=== PATIENT | male | born 1955 | race Caucasian/White ===

== ENCOUNTER 2022-07-03 06:26 | Day surgery (SDC) | payer BC ==
[2022-07-03] MEDS ORDERED: Lactated Ringers 1,000 ML IV ONE (06:36)
[2022-07-03] MEDS ORDERED: Lactated Ringers 1,000 ML IV SCH (07:00)
[2022-07-03] MEDS ORDERED: Xylocaine-Mpf 2% 5 Ml Vial ONE ×2 (08:02)
[2022-07-03] MEDS ORDERED: ROBINUL ONE (08:02)
[2022-07-03] MEDS ORDERED: DIPRIVAN 200 MG/20 ML IV ONE ×2 (08:02→08:16)
[2022-07-03 09:25] VITALS: BP 132/76; PULSE 58; O2SAT 97
--- NOTE | 2022-07-03 12:19 | OP ---
SURGERY DATE: 07/03/2022 SURGERY TIME: 0800 PREOPERATIVE DIAGNOSIS: 1. SCREENING COLONOSCOPY. POSTOPERATIVE DIAGNOSIS: 1. NORMAL COLON. PROCEDURE: 1. Colonoscopy. SURGEON: Dr. Trung Rm. ANESTHESIA: MAC by Rocky Lizarraga CRNA. SPECIMENS: None. ESTIMATED BLOOD LOSS: None. DESCRIPTION OF PROCEDURE: After informed written consent was obtained, the patient was taken to the endoscopy suite. He was placed in the left lateral decubitus position and anesthesia was titrated to the desired level of consciousness. Digital rectal exam showed normal sphincter tone and no internal lesions. The scope was inserted in the rectum and sequentially the entire colonic mucosa was traversed. The level of the cecum was reached and verified with direct visualization of the ileocecal valve. Upon withdrawal, careful mucosal inspection revealed no gross abnormalities. Prior to withdrawal, retroflexion was performed. Showed no internal lesions. The scope was removed and the patient was transferred to the recovery room in good condition.
== END 2022-07-03 09:28 | disposition home or self-care (01) ==
LOC: SDC 06:26
PROVIDERS: ATTEND Family Medicine
DX: Z12.11 Encounter for screening for malignant neoplasm of colon (principal); I10 Essential (primary) hypertension; Z79.899 Other long term (current) drug therapy
CPT/HCPCS: J2704

== ENCOUNTER 2025-08-28 06:21 | Day surgery (SDC) | payer MEDICARE, OTHER ==
[2025-08-28] MEDS ORDERED: CEFAZOLIN SODIUM ONE (06:38)
[2025-08-28] MEDS: TYLENOL EXTRA STRENGTH 500 MG PO ONE (06:47)
[2025-08-28] MEDS: Lactated Ringers 1,000 ML IV SCH (06:47)
[2025-08-28] MEDS: celeBREX 100 MG PO ONE (06:48)
[2025-08-28] MEDS: NEURONTIN PO ONE (06:48)
[2025-08-28] MEDS ORDERED: PHENYLEPHRINE HCL ONE (07:02)
[2025-08-28] MEDS ORDERED: Xylocaine-Mpf 2% 5 Ml Vial ONE (07:53)
[2025-08-28] MEDS ORDERED: propofoL IV ONE (07:53)
[2025-08-28] MEDS ORDERED: Zofran 4 MG/2 ML VIAL ONE (08:02)
[2025-08-28] MEDS ORDERED: SUBLIMAZE 100 MCG/2 ML ONE (08:03)
[2025-08-28] MEDS ORDERED: Ephedrine Sulfate 50 MG/ML ONE (08:24)
[2025-08-28] MEDS ORDERED: Marcaine Mpf 0.5% Vial 30 Ml ONE (08:36)
[2025-08-28 09:39] VITALS: RESP 16
[2025-08-28 09:48] VITALS: BP 134/78; PULSE 64; TEMP 97.6; O2SAT 96
--- NOTE | 2025-08-29 10:57 | OP ---
SURGERY DATE/TIME: 08/28/2025 [id number] PREOPERATIVE DIAGNOSES: Torn right medial meniscus, chondromalacia of patella. POSTOPERATIVE DIAGNOSES: Torn right medial meniscus, chondromalacia of patella, chondromalacia medial femoral condyle. PROCEDURE: Arthroscopy of the right knee with partial medial meniscectomy, chondroplasty of patella and medial femoral condyle. SURGEON: Jaime Brian II, DO. ANESTHESIA: General. DESCRIPTION OF PROCEDURE AND FINDINGS: The patient was identified, and informed consent was obtained. The patient was taken to the operative suite and placed in the supine position on the operating table where the general anesthetic was administered. Once an appropriate level of anesthesia had been obtained, a tourniquet was placed high on the right thigh. The right lower extremity was then placed in the knee ortiz and prepped and draped in the usual sterile fashion. A standard time-out was taken. Following this, the leg was exsanguinated, and the tourniquet elevated to 350 mmHg. A standard superomedial portal was created with an 11 blade. Trocar and cannula were placed in the joint. The joint was distended with the arthroscopic pump. An inferolateral portal was also created with an 11 blade, and the arthroscope was then placed in through the cannula. An 18-gauge spinal needle identified the level for the inferomedial portal, which was also created with an 11 blade. The knee was then inspected in a systematic fashion beginning in the suprapatellar pouch where there were no loose bodies or synovial hypertrophy. The undersurface of the patella had some grade 2 chondromalacia in the deepest portion of the patella and this was shaved and chondroplasty performed with the motorized shaver. The patient also had an area on the far medial edge of the medial facet of the patella and a chondroplasty was also performed with the shaver. The patella was noted to seat nicely in the femoral groove at about 30 degrees of flexion. Gutters were inspected and no loose bodies or synovial hypertrophy. Scope was placed in the medial compartment where a complex tear of the posterior horns of the medial meniscus was encountered and resected with the handheld biting instruments and shaved to a smooth transition with the shaver. Patient had an area of chondromalacia where he had been walking on the joint meniscus and this area of chondromalacia was treated with the shaver with limited chondroplasty. Intercondylar notch region was inspected and the anterior cruciate ligament was noted to be intact without evidence of attenuation or tears. Scope was placed into the lateral compartment where the lateral meniscus was probed throughout its entirety and noted to be intact without evidence of attenuation or tears. The lateral femoral condyle and tibial plateau were also noted to be intact with no degenerative changes noted. At this point, the knee was reinspected and copiously irrigated. No further pathology was identified. The instrumentation was removed, and the portal sites were closed with interrupted 4-0 nylon suture. The knee was infiltrated with 30 mL of 0.25% Marcaine with epinephrine. Adaptics, 4 x 4s, and a standard postop arthroscopy dressing applied. The patient was transferred to the cart and taken to the recovery room in satisfactory condition, having tolerated the procedure well.
== END 2025-08-28 10:00 | disposition home or self-care (01) ==
LOC: SDC 06:21
PROVIDERS: ATTEND Orthopaedic Surgery
DX: S83.231A Complex tear of medial meniscus, current injury, right knee, initial encounter (principal); M22.41 Chondromalacia patellae, right knee

== ENCOUNTER 2025-10-10 09:37 | Inpatient (IN) | payer MEDICARE, OTHER ==
[2025-10-10] MEDS ORDERED: Lactated Ringers 1,000 ML IV ONE (10:01)
[2025-10-10] MEDS: Lactated Ringers 1,000 ML IV SCH (10:07)
[2025-10-10 10:32] LABS: Hematocrit 47.5 % (40.1-51.0); Hemoglobin 15.7 g/dL (13.7-17.5); Mean Corpuscular Hemoglobin 30.1 pg (25.7-32.2); Mean Corpuscular Hgb Concent. 33.1 g/dL (32.3-36.5); Platelet Count 238 x10^3/uL (163-337); Red Blood Count 5.22 x10^6/uL (4.63-6.08); White Blood Count 7.3 x10^3/uL (4.23-9.07)
[2025-10-10] MEDS ORDERED: CEFAZOLIN SODIUM ONE (10:40)
[2025-10-10 11:41] LABS: Calcium 9.7 mg/dL (8.4-10.2); Carbon Dioxide 24.0 mmol/L (22-30); Creatinine 1 0.87 mg/dL (0.66-1.25); EST GLOMERULAR FILTRATION RATE 94.0 ML/MIN; Glucose 103.0 mg/dL (74-106); Potassium 4.2 mmol/L (3.5-5.1); SGOT/AST 30.0 U/L (17-59); SGPT/ALT 23.0 U/L (0-50); Total Protein 7.9 g/dL (6.3-8.2)
[2025-10-10] MEDS ORDERED: Versed 2 MG/2 ML Injection ONE (14:07)
[2025-10-10] MEDS ORDERED: Xylocaine-Mpf 2% 5 Ml Vial ONE (14:07)
[2025-10-10] MEDS ORDERED: SUBLIMAZE 100 MCG/2 ML ONE (14:07)
[2025-10-10] MEDS ORDERED: ROCURONIUM BROMIDE IV ONE (14:07)
[2025-10-10] MEDS ORDERED: Zofran 4 MG/2 ML VIAL ONE (14:07)
[2025-10-10] MEDS ORDERED: DEXMEDETOMIDINE 80 MCG/20ML-NS IV ONE (14:07)
[2025-10-10] MEDS ORDERED: propofoL IV ONE (14:07)
[2025-10-10] MEDS ORDERED: EXPAREL 133 MG/10 ML VIAL IJ ONE (14:14)
[2025-10-10] MEDS ORDERED: Pre-Attached Lta Kit TP ONE (14:14)
[2025-10-10] MEDS ORDERED: Marcaine Mpf 0.5% Vial 30 Ml ONE (14:14)
[2025-10-10] MEDS ORDERED: KEFZOL 1 GM ONE (15:07)
[2025-10-10] MEDS ORDERED: Ephedrine Sulfate 50 MG/ML ONE (15:20)
[2025-10-10] MEDS ORDERED: BRIDION 200MG/2ML IV ONE (16:01)
--- NOTE | 2025-10-10 17:03 | XRAY ---
Indication: Left ankle ORIF, syndesmosis reduction, possible lateral ankle stabilization, and possible deltoid ligament repair. Intraoperative fluoroscopy provided for 2 minute 24 seconds. 18 digital spot images submitted for interpretation ultimately demonstrates lateral fixation plate/transverse screws fixating lateral malleolus fracture in good apposition/alignment. Distal tibia/fibula also demonstrates transverse tunnel radiolucency with medial orthopedic button. Correlate with intraoperative findings/report.
--- NOTE | 2025-10-10 19:31 | PCM.HP ---
History of Present Illness - Chief Complaint Chief Complaint: POST OP ORIF Date: 10/10/25 History of Present Illness: is a 70 year old male PMHX of HTN, and DDD. Pt was admitted per request of podiatry post op Left ankle fracture and repair today. He is wanting placement to rehab at [place] if possible. He is scheduled to have a surgery with Dr. Lindo a neurosurgeon from [place] on the for spinal stenosis. He has chronic back pain with chronic weakness of Right lower extremity from a bone spur in the lumbar region. He is hoping the surgery will help with his right leg weakness. He reports this is what caused his fall. He now has BLLE weakness with the Left ankle fracture and concerned about ADL's at home. Pt denies any further concerns at this time. - Review of Systems Constitutional: Weakness (Chronic weakness of RLE), No Fever, No Chills Eyes: No Symptoms Ears, Nose, & Throat: No Symptoms Respiratory: No Cough, No Short Of Breath Cardiac: No Chest Pain, No Edema, No Syncope Abdominal/Gastrointestinal: No Abdominal Pain, No Nausea, No Vomiting, No Diarrhea Genitourinary Symptoms: No Dysuria Musculoskeletal: Injury (Left ankle- post op surgery), No Back Pain, No Neck Pain Skin: No Rash Neurological: No Dizziness, No Focal Weakness, No Sensory Changes Psychological: No Symptoms Endocrine: No Symptoms Hematologic/Lymphatic: No Symptoms Immunological/Allergic: No Symptoms Medications & Allergies Home Medications: Home Medication List Losartan Potassium 50 mg PO DAILY 07/03/22 [History Confirmed 10/10/25] Sildenafil Citrate 1 tab PO DAILY 08/22/25 [History Confirmed 10/10/25] Ascorbic Acid/Ascorbate Sodium [Vitamin C 500 mg Tablet Chew] 500 mg PO DAILY 10/10/25 [History Confirmed 10/10/25] Gabapentin [Neurontin ] 300 mg PO BID 10/10/25 [History Confirmed 10/10/25] Allergies/Adverse Reactions: Allergies Allergy/AdvReac Type Severity Reaction Status Date / Time No Known Drug Allergies Allergy Verified 10/09/25 16:39 - Past Medical History Past Medical History: Yes Neurological History: No Pertinent History ENT History: Cataracts Cardiac History: Hypertension Respiratory History: No Pertinent History Endocrine Medical History: No Pertinent History Musculoskelatal History: Degenerative Disk Disease, Fractures GI Medical History: No Pertinent History History: No Pertinent History Pyscho-Social History: No Pertinent History Male Reproductive Disorders: No Pertinent History Comment: hearing loss. left lower leg/ankle fracture - Past Surgical History Past Surgical History: Yes Neuro Surgical History: No Pertinent History Cardiac History: No Pertinent History Respiratory Surgery: No Pertinent History GI Surgical History: No Pertinent History Genitourinary Surgical Hx: No Pertinent History Musculskeletal Surgical Hx: Orthopedic Surgery Male Surgical History: Vasectomy Other Surgical History: DISK REPLACEMENT - Social History Smoking Status: Never smoker Exposure to second hand smoke: No Alcohol: None Drug Use: none - Social Determinants of Health Will the patient participate in the screening: Declined to provide - Physical Exam Vital Signs: Vital Signs - 24 hr Temp Pulse Resp BP Pulse Ox 10/10/25 18:27 63 18 128/64 95 10/10/25 17:55 97 F 68 18 132/70 92 L 10/10/25 17:40 64 18 128/64 93 L 10/10/25 17:25 97.6 F 63 18 128/70 92 L 10/10/25 10:34 98 F 75 16 145/70 97 10/10/25 10:16 98 F 75 16 145/70 97 General Appearance: no apparent distress, alert Neurologic Exam: alert, oriented x 3, cooperative, normal mood/affect, nml cerebellar function, nml station & gait, sensation nml, motor weakness (BLLE), No motor deficits Eye Exam: PERRL/EOMI, eyes nml inspection Ears, Nose, Throat Exam: normal ENT inspection, TMs normal, pharynx normal, mois t mucous membranes Neck Exam: normal inspection, non-tender, supple, full range of motion Respiratory Exam: normal breath sounds, lungs clear, No respiratory distress Cardiovascular Exam: regular rate/rhythm, normal heart sounds, normal peripheral pulses Gastrointestinal/Abdomen Exam: soft, normal bowel sounds, No tenderness, No mass Back Exam: normal inspection, normal range of motion, No CVA tenderness, No vertebral tenderness Extremity Exam: normal inspection, normal range of motion, pelvis stable, limited range of motion (LLE post op surgery) Skin Exam: normal color, warm, dry, No rash Lymphatic Exam: No adenopathy Results - Labs Lab/Micro Results: Lab Results-Last 24 Hours 10/10/25 10/10/25 Range/Units 10:20 10:20 WBC 7.3 (4.23-9.07) x10^3/uL RBC 5.22 (4.63-6.08) x10^6/uL Hgb 15.7 (13.7-17.5) g/dL Hct 47.5 (40.1-51.0) % MCV 91.0 (79.0-92.2) fL MCH 30.1 (25.7-32.2) pg MCHC 33.1 (32.3-36.5) g/dL RDW 12.3 (11.6-14.4) % Plt Count 238 (163-337) x10^3/uL MPV 9.9 (9.4-12.4) fL Sodium 137 (135-145) mmol/L Potassium 4.2 (3.5-5.1) mmol/L Chloride 102 (98-107) mmol/L Carbon Dioxide 24 (22-30) mmol/L Anion Gap 14.4 (5-15) MEQ/L BUN 14 (9-20) mg/dL Creatinine 0.87 (0.66-1.25) mg/dL Estimated GFR 94.0 ML/MIN Glucose 103 (74-106) mg/dL Calcium 9.7 (8.4-10.2) mg/dL Total Bilirubin 1.20 (0.2-1.3) mg/dL AST 30 (17-59) U/L ALT 23 (0-50) U/L Alkaline Phosphatase 132 H (38-126) U/L Serum Total Protein 7.9 (6.3-8.2) g/dL Albumin 4.7 (3.5-5.0) g/dL - Radiology Impressions Radiology Exams & Impressions: Radiology Procedures Category Date Time Status ANKLE (3 VIEWS) Routine Exams 10/10/25 07:24 Completed FLUOROSCOPY UP TO 1 HR Routine Exams 10/10/25 07:24 Taken Assessment/Plan (1) Fracture of distal end of fibula Current Visit: No Status: Acute Assessment & Plan: - POD #1 repair by podiatry - Right ankle XR: - Intraoperative fluoroscopy provided for 2 minute 24 seconds. 18 digital spot images submitted for interpretation ultimately demonstrates lateral fixation plate/transverse screws fixating lateral malleolus fracture in good apposition/alignment. Distal tibia/fibula also demonstrates transverse tunnel radiolucency with medial orthopedic button. Correlate with intraoperative findings/report. - Podiatry following - Narcotic pain control - Tylenol for pain PRN - RICE techniques - CBC, CMP reviewed - IVF stopped - Cefazolin gave in OR - Narcan PRN resp depression - Non- weight bearing right ankle Code(s): S82.839A - OTH FRACTURE OF UPPER AND LOWER END OF UNSP FIBULA, INIT (2) Fall Current Visit: No Status: Acute Assessment & Plan: - See plan above - CBC, CMP reviewed - From Chronic RLE weakness - PT/OT eval with rehab placement Code(s): W19.XXXA - UNSPECIFIED FALL, INITIAL ENCOUNTER (3) Chronic back pain Current Visit: Yes Status: Acute Assessment & Plan: - Continue gabapentin - HX spinal stenosis - Has upcoming surgery with Dr. Lindo- Neurosurgery on October 18 - Would like to go to [place] for rehab post op as his neurosurgeon has privileges there. Code(s): M54.9 - DORSALGIA, UNSPECIFIED; G89.29 - OTHER CHRONIC PAIN (4) Right leg weakness Current Visit: Yes Status: Acute Assessment & Plan: - Chronic - See Chronic pain pain plan above Code(s): R29.898 - OTH SYMPTOMS AND SIGNS INVOLVING THE MUSCULOSKELETAL SYSTEM (5) HTN (hypertension) Current Visit: Yes Status: Chronic Assessment & Plan: - BP stable - Continue home BP med Code(s): I10 - ESSENTIAL (PRIMARY) HYPERTENSION (6) Obesity (BMI 30.0-34.9) Current Visit: Yes Status: Chronic Assessment & Plan: - Advised diet and exercise control Plan of care time > 50 minutes Code(s): E66.811 - OBESITY, CLASS 1 Telemedicine Encounter - Telemedicine Encounter Telemedicine Encounter: "The entirety of this encounter was performed via Telemedicine" This visit was performed using real-time audio and video connection between my location and thepatients locationwith the assistance of a surrogateat the patients location. Written or verbal consent was obtained from the patient/guardian to perform this visit [email or web address] + Sailtelemedicine technology. Any patient questions regarding the telemedicine interaction were answered.
[2025-10-10] MEDS ORDERED: Narcan 0.4 MG/ML IV PRN (19:39)
[2025-10-10] MEDS ORDERED: Zofran 4 MG/2 ML VIAL IV PRN (19:46)
[2025-10-10] MEDS: NEURONTIN PO SCH (22:04)
[2025-10-10] MEDS: NEURONTIN PO ONE (22:04)
[2025-10-11] MEDS: TYLENOL 325 MG PO PRN (04:30)
[2025-10-11 05:51] LABS: Hematocrit 42.6 % (40.1-51.0); Hemoglobin 13.7 g/dL (13.7-17.5); Mean Corpuscular Hemoglobin 29.4 pg (25.7-32.2); Mean Corpuscular Hgb Concent. 32.2 g/dL (32.3-36.5); Platelet Count 243 x10^3/uL (163-337); Red Blood Count 4.66 x10^6/uL (4.63-6.08); White Blood Count 13.1 x10^3/uL (4.23-9.07)
[2025-10-11 06:34] LABS: Calcium 9.2 mg/dL (8.4-10.2); Carbon Dioxide 24.0 mmol/L (22-30); Creatinine 1 0.81 mg/dL (0.66-1.25); EST GLOMERULAR FILTRATION RATE 96.0 ML/MIN; Glucose 128.0 mg/dL (74-106); Potassium 4.1 mmol/L (3.5-5.1); SGOT/AST 25.0 U/L (17-59); SGPT/ALT 21.0 U/L (0-50); Total Protein 7.0 g/dL (6.3-8.2)
[2025-10-11] MEDS ORDERED: MEDICATION INTERVENTION MC SCH (07:30)
[2025-10-11] MEDS: Vitamin C 500 MG PO SCH (09:53)
[2025-10-11] MEDS: Ecotrin 325 MG PO SCH (09:53)
[2025-10-11] MEDS: Cozaar 50 MG PO SCH (09:53)
[2025-10-11] MEDS ORDERED: SILDENAFIL CITRATE 100 MG PO SCH (10:00)
[2025-10-11] MEDS: NORCO 7.5/325 MG TAB PO PRN (10:17)
--- NOTE | 2025-10-11 12:33 | XRAY ---
2 minutes and 24 seconds of fluoroscopy was used in surgery for a left ankle ORIF, syndesmosis reduction, possible lateral ankle stabilization, and possible deltoid ligament repair.
--- NOTE | 2025-10-11 13:22 | PCM.NOTE ---
Date and Time: 10/11/25 1313 Subjective Assessment: 10/10/25 is a 70 year old male PMHX of HTN, and DDD. Pt was admitted per request of podiatry post op Left ankle fracture and repair today. He is wanting placement to rehab at [place] if possible. He is scheduled to have a surgery with Dr. Lindo a neurosurgeon from [place] on the for spinal stenosis. He has chronic back pain with chronic weakness of Right lower extremity from a bone spur in the lumbar region. He is hoping the surgery will help with his right leg weakness. He reports this is what caused his fall. He now has BLLE weakness with the Left ankle fracture and concerned about ADL's at home. Pt denies any further concerns at this time. 10/11/25 Pt resting in bed. He did not do well with PT/OT today per verbal report. Pt awaiting placement to rehab if accepted. CM working on placement. WBC 13.1. He post op day #2 from surgery with podiatry. Awaiting podiatry note and recs. Pain well controlled at this time. Pt denies any further concerns. * Started Levaquin 500mg daily per Dr. Morel- podiatry. - Review of Systems Constitutional: Weakness, No Fever, No Chills Eyes: No Symptoms Ears, Nose, & Throat: No Symptoms Respiratory: No Cough, No Short Of Breath Cardiac: No Chest Pain, No Edema, No Syncope Abdominal/Gastrointestinal: No Abdominal Pain, No Nausea, No Vomiting, No Diarrhea Genitourinary Symptoms: No Dysuria Musculoskeletal: Injury (LLE wrapped), No Back Pain, No Neck Pain Skin: No Rash Neurological: No Dizziness, No Focal Weakness, No Sensory Changes Psychological: No Symptoms Endocrine: No Symptoms Hematologic/Lymphatic: No Symptoms Immunological/Allergic: No Symptoms Objective Exam General Appearance: no apparent distress, alert, obese Neurologic Exam: alert, oriented x 3, cooperative, normal mood/affect, nml cerebellar function, sensation nml, motor weakness, No motor deficits Skin Exam: normal color, warm, dry Wound Assessment: Skin/Wound Assessment Wound/Incision Assessment Start: 10/11/25 04:10 Text: Status: Active Freq: Q4H Protocol: Document 10/11/25 12:00 AR (Rec: 10/11/25 12:47 AR [id number]) Wound/Incision Assessment Left ankle Wound Assessment Shift Assessment Wound Type Incision Wound Stage Non Pressure Wound Dressing Status Dry & Intact Drainage Amount None Drainage Odor None/Absent Comment Post-op dressing C/D/I Wound Photo Photo Taken No Eye Exam: PERRL, EOMI, eyes nml inspection Ears, Nose, Throat Exam: normal ENT inspection, pharynx normal, moist mucous membranes Neck Exam: normal inspection, non-tender, supple, full range of motion Respiratory Exam: normal breath sounds, lungs clear, No respiratory distress Cardiovascular Exam: regular rate/rhythm, normal heart sounds Gastrointestinal/Abdomen Exam: soft, No tenderness, No mass Extremity Exam: normal inspection, normal range of motion, limited range of motion (LLE- wrapped), other (Weakness of RLE) Back Exam: normal inspection, normal range of motion, No CVA tenderness, No vertebral tenderness Male Genitalia Exam: deferred Rectal Exam: deferred Objective Data Vital Signs: Vital Signs - 24 hr Temp Pulse Resp BP Pulse Ox 10/11/25 07:48 98.1 F 85 18 128/59 93 L 10/11/25 04:10 18 10/11/25 04:00 98.5 F 87 18 130/63 94 L 10/11/25 00:00 98.1 F 92 H 18 122/59 91 L 10/10/25 18:27 63 18 128/64 95 10/10/25 17:55 97 F 68 18 132/70 92 L 10/10/25 17:40 64 18 128/64 93 L 10/10/25 17:25 97.6 F 63 18 128/70 92 L Pain Assessment - Last Documented Pain Intensity [Left] 3 Pain Intensity 0 Pain Scale Used 0-10 Pain Scale Intake and Output: Intake & Output 10/09/25 10/10/25 10/11/25 10/12/25 11:59 11:59 11:59 11:59 Intake Total 240 Output Total 1700 Balance -1460 Weight 111.13 kg 115 kg Lab Results: Lab Results-Last 24 Hours 10/11/25 10/11/25 Range/Units 04:45 04:45 WBC 13.1 H (4.23-9.07) x10^3/uL RBC 4.66 (4.63-6.08) x10^6/uL Hgb 13.7 (13.7-17.5) g/dL Hct 42.6 (40.1-51.0) % MCV 91.4 (79.0-92.2) fL MCH 29.4 (25.7-32.2) pg MCHC 32.2 L (32.3-36.5) g/dL RDW 12.2 (11.6-14.4) % Plt Count 243 (163-337) x10^3/uL MPV 10.5 (9.4-12.4) fL Sodium 134 L (135-145) mmol/L Potassium 4.1 (3.5-5.1) mmol/L Chloride 101 (98-107) mmol/L Carbon Dioxide 24 (22-30) mmol/L Anion Gap 13.2 (5-15) MEQ/L BUN 12 (9-20) mg/dL Creatinine 0.81 (0.66-1.25) mg/dL Estimated GFR 96.0 ML/MIN Glucose 128 H (74-106) mg/dL Calcium 9.2 (8.4-10.2) mg/dL Total Bilirubin 0.90 (0.2-1.3) mg/dL AST 25 (17-59) U/L ALT 21 (0-50) U/L Alkaline Phosphatase 111 (38-126) U/L Serum Total Protein 7.0 (6.3-8.2) g/dL Albumin 4.2 (3.5-5.0) g/dL Radiology Exams: Radiology Procedures Category Date Time Status ANKLE (3 VIEWS) Routine Exams 10/10/25 07:24 Completed FLUOROSCOPY UP TO 1 HR Routine Exams 10/10/25 07:24 Completed Medications: Medications Generic Name Dose Route Start Last Admin Trade Name Freq PRN Reason Stop Dose Admin Acetaminophen 650 mg 10/10/25 19:40 10/11/25 04:30 Acetaminophen 325 Mg Tablet PO 11/09/25 19:39 650 mg Q6H PRN PRN Administration PAIN AND/OR FEVER Hydrocodone Bitart/Acetaminophen 1 tab 10/10/25 18:23 10/11/25 10:17 Hydrocodone /Apap 7.5/325 Mg 1 Each Tablet PO 10/15/25 18:22 1 tab Q6H PRN PRN Administration PAIN Ascorbic Acid 500 mg 10/11/25 10:00 10/11/25 09:58 Ascorbic Acid 500 Mg Tablet PO 11/10/25 09:59 Not Given DAILY MATTHEW Aspirin 325 mg 10/11/25 10:00 10/11/25 09:53 Aspirin 325 Mg Tablet.Ec PO 11/10/25 09:59 325 mg DAILY MATTHEW Administration Gabapentin 300 mg 10/10/25 22:00 10/11/25 09:53 Gabapentin 300 Mg Capsule PO 11/09/25 21:59 300 mg BID MATTHEW Administration Losartan Potassium 50 mg 10/11/25 10:00 10/11/25 09:53 Losartan Potassium 50 Mg Tablet PO 11/10/25 09:59 50 mg DAILY MATTHEW Administration Miscellaneous Information 1 each 10/11/25 07:30 Medication Intervention 1 Each Each 11/10/25 07:29 .RN TO CHECK MATTHEW Naloxone HCl 0.4 mg 10/10/25 19:39 Naloxone Hcl 0.4 Mg/Ml Ml IV 11/09/25 19:38 PRN PRN RESPIRATORY DEPRESSION Ondansetron HCl 4 mg 10/10/25 19:46 Ondansetron Hcl 4 Mg/2 Ml Vial IV 11/09/25 19:45 Q6H PRN PRN NAUSEA/VOMITING Discontinued Medications Generic Name Dose Route Start Last Admin Trade Name Freq PRN Reason Stop Dose Admin Bupivacaine HCl Confirm 10/10/25 14:14 Bupivacaine Hcl/Pf 150 Mg/30 Ml Vial Administered 10/10/25 14:15 Dose 150 mg .ROUTE .STK-MED ONE Bupivacaine Liposome Confirm 10/10/25 14:14 Bupivacaine Liposome/Pf 133 Mg/10 Ml Administered 10/10/25 14:15 Dose 266 mg IJ .STK-MED ONE Cefazolin Sodium Confirm 10/10/25 10:40 Cefazolin Sodium 2 Gm Vial Administered 10/10/25 10:41 Dose 2 gm .ROUTE .STK-MED ONE Cefazolin Sodium Confirm 10/10/25 15:07 Cefazolin Sodium 1 Gm Vial Administered 10/10/25 15:08 Dose 1 g .ROUTE .STK-MED ONE Dexamethasone Sodium Phosphate Confirm 10/10/25 14:07 Dexamethasone Sodium Phosphate 4 Mg/Ml Vial Administered 10/10/25 14:08 Dose 4 mg .ROUTE .STK-MED ONE Dexamethasone Sodium Phosphate Confirm 10/10/25 15:10 Dexamethasone Sodium Phosphate 4 Mg/Ml Vial Administered 10/10/25 15:11 Dose 4 mg .ROUTE .STK-MED ONE Dexmedetomidine/Sodium Chloride Confirm 10/10/25 14:07 Dexmedetomidine In 0.9 % Nacl 80 Mcg/20 Ml Vial Administered 10/10/25 14:08 Dose 80 mcg IV .STK-MED ONE Ephedrine Sulfate Confirm 10/10/25 15:20 Ephedrine Sulfate 50 Mg/Ml Administered 10/10/25 15:21 Dose 50 mg .ROUTE .STK-MED ONE Fentanyl Citrate Confirm 10/10/25 14:07 Fentanyl Citrate 100 Mcg/2 Ml* Vial Administered 10/10/25 14:08 Dose 100 mcg .ROUTE .STK-MED ONE Gabapentin 300 mg 10/10/25 22:00 10/10/25 22:04 Gabapentin 300 Mg Capsule PO 10/10/25 22:01 Not Given ONCE ONE Lactated Ringer's Confirm 10/10/25 10:01 Lactated Ringers Administered 10/10/25 10:02 Dose 1,000 mls @ ud IV .STK-MED ONE Cefazolin Sodium 2 gm/ Sodium 100 mls @ 200 mls/hr 10/10/25 10:05 10/10/25 10:42 Chloride IV 10/10/25 10:34 200 mls/hr ONCALLTOOR ONE Administration Lactated Ringer's 1,000 mls @ 50 mls/hr 10/10/25 10:30 10/10/25 10:07 Lactated Ringers IV 11/09/25 10:29 50 mls/hr .Q20H MATTHEW Administration Sodium Chloride Confirm 10/10/25 10:40 Sodium Chloride 0.9% Administered 10/10/25 10:41 Dose 100 mls @ ud .ROUTE .STK-MED ONE Lidocaine HCl Confirm 10/10/25 14:07 Lidocaine - Mpf 2% 5 Ml Vial Administered 10/10/25 14:08 Dose 5 ml .ROUTE .STK-MED ONE Lidocaine HCl Confirm 10/10/25 14:14 Lidocaine Hcl 4 Ml Solution (Lta Kit) Administered 10/10/25 14:15 Dose 4 ml TP .STK-MED ONE Midazolam HCl Confirm 10/10/25 14:07 Midazolam Hcl 2 Mg/2 Ml Vial Administered 10/10/25 14:08 Dose 2 mg .ROUTE .STK-MED ONE Ondansetron HCl Confirm 10/10/25 14:07 Ondansetron Hcl 4 Mg/2 Ml Vial Administered 10/10/25 14:08 Dose 4 mg .ROUTE .STK-MED ONE Propofol Confirm 10/10/25 14:07 Propofol 200 Mg/20 Ml Vial Administered 10/10/25 14:08 Dose 200 mg IV .STK-MED ONE Rocuronium [place] Confirm 10/10/25 14:07 Rocuronium [place] 50 Mg/5 Ml Vial Administered 10/10/25 14:08 Dose 50 mg IV .STK-MED ONE Sugammadex Sodium Confirm 10/10/25 16:01 Sugammadex Sodium 200 Mg/2 Ml Vial Administered 10/10/25 16:02 Dose 200 mg IV .STK-MED ONE Multi-Disciplinary Progress Notes: Multi-Disciplinary Progress Notes 10/11/25 12:53 Case Management Note by Nancy Arias DONE, NO LEVEL II REQUIRED-COPIES PLACED ON CHART FULL REFERRAL WITH [facility] FAXED TO [facility] Initialized on 10/11/25 12:53 - END OF NOTE Assessment/Plan (1) Fracture of distal end of fibula Current Visit: No Status: Acute Code(s): S82.839A - OTH FRACTURE OF UPPER AND LOWER END OF UNSP FIBULA, INIT (2) Fall Current Visit: No Status: Acute Code(s): W19.XXXA - UNSPECIFIED FALL, INITIAL ENCOUNTER (3) Chronic back pain Current Visit: Yes Status: Acute Code(s): M54.9 - DORSALGIA, UNSPECIFIED; G89.29 - OTHER CHRONIC PAIN (4) Right leg weakness Current Visit: Yes Status: Acute Code(s): R29.898 - OTH SYMPTOMS AND SIGNS INVOLVING THE MUSCULOSKELETAL SYSTEM (5) HTN (hypertension) Current Visit: Yes Status: Chronic Code(s): I10 - ESSENTIAL (PRIMARY) HYPERTENSION (6) Obesity (BMI 30.0-34.9) Current Visit: Yes Status: Chronic Assessment & Plan: (1) Fracture of distal end of fibula Current Visit: No Status: Acute Assessment & Plan: - POD #1 repair by podiatry - Right ankle XR: - Intraoperative fluoroscopy provided for 2 minute 24 seconds. 18 digital spot images submitted for interpretation ultimately demonstrates lateral fixation plate/transverse screws fixating lateral malleolus fracture in good apposition/alignment. Distal tibia/fibula also demonstrates transverse tunnel radiolucency with medial orthopedic button. Correlate with intraoperative findings/report. - Podiatry following - Narcotic pain control - Tylenol for pain PRN - RICE techniques - BIANKA, CMP reviewed - IVF stopped - Cefazolin gave in OR - Narcan PRN resp depression - Non- weight bearing right ankle 10/11 - Podiatry note pending - Start Levaquin 500mg PO daily per Dr. Morel - + Weakness of BLLE - Pt not not do well with PT/OT today per verbal reports - CM working on placement to rehab - BIANKA, CMP reviewed - WBC 13.1 Code(s): S82.839A - OTH FRACTURE OF UPPER AND LOWER END OF UNSP FIBULA, INIT (2) Fall Current Visit: No Status: Acute Assessment & Plan: - See plan above - BIANKA CMP reviewed - From Chronic RLE weakness - PT/OT eval with rehab placement Code(s): W19.XXXA - UNSPECIFIED FALL, INITIAL ENCOUNTER (3) Chronic back pain Current Visit: Yes Status: Acute Assessment & Plan: - Continue gabapentin - HX spinal stenosis - Has upcoming surgery with Dr. Lindo- Neurosurgery on October 18 - Would like to go to [place] for rehab post op as his neurosurgeon has privileges there. Code(s): M54.9 - DORSALGIA, UNSPECIFIED; G89.29 - OTHER CHRONIC PAIN (4) Right leg weakness Current Visit: Yes Status: Acute Assessment & Plan: - Chronic - See Chronic pain pain plan above Code(s): R29.898 - OTH SYMPTOMS AND SIGNS INVOLVING THE MUSCULOSKELETAL SYSTEM (5) HTN (hypertension) Current Visit: Yes Status: Chronic Assessment & Plan: - BP stable - Continue home BP med Code(s): I10 - ESSENTIAL (PRIMARY) HYPERTENSION (6) Obesity (BMI 30.0-34.9) Current Visit: Yes Status: Chronic Assessment & Plan: - Advised diet and exercise control VTE: Lovenox PPI: Protonix D/C plan: pending placement Plan of care time > 50 minutes Next of KIN: Code(s): E66.811 - OBESITY, CLASS 1 Code(s): E66.811 - OBESITY, CLASS 1
[2025-10-11] MEDS: Protonix 20MG Tablet PO SCH (15:42)
[2025-10-11] MEDS: Levofloxacin 500 MG Tablet PO SCH (15:42)
[2025-10-11] MEDS: ENOXAPARIN SODIUM SQ SCH (16:34)
[2025-10-12 05:40] LABS: Hematocrit 38.3 % (40.1-51.0); Hemoglobin 12.5 g/dL (13.7-17.5); Mean Corpuscular Hemoglobin 30.1 pg (25.7-32.2); Mean Corpuscular Hgb Concent. 32.6 g/dL (32.3-36.5); Platelet Count 203 x10^3/uL (163-337); Red Blood Count 4.15 x10^6/uL (4.63-6.08); White Blood Count 8.6 x10^3/uL (4.23-9.07)
[2025-10-12 05:55] LABS: Calcium 8.4 mg/dL (8.4-10.2); Carbon Dioxide 27.0 mmol/L (22-30); Creatinine 1 0.92 mg/dL (0.66-1.25); EST GLOMERULAR FILTRATION RATE 90.6 ML/MIN; Glucose 102.0 mg/dL (74-106); Potassium 4.0 mmol/L (3.5-5.1)
[2025-10-12] MEDS ORDERED: Protonix 20MG Tablet PO SCH (10:00)
--- NOTE | 2025-10-12 11:39 | PCM.CONS ---
Podiatry HPI - Consult Date of Consultation Date: 10/10/25 Reason for Consult: left ankle fracture. Spinal compression injury. inability to ambulate. Consulting Provider: PORSCHE KHALIL DPM - [facility] History of Present Illness: Mr. Jauregui is a 70-year-old male with a history of hypertension and degenerative disc disease. He was admitted following postoperative repair of a left ankle fracture earlier today. He is requesting rehabilitation placement, preferably at [facility], due to current mobility limitations. He is scheduled for spinal stenosis surgery with neurosurgeon Dr. Lindo in [place] on the . He reports chronic back pain and longstanding right lower extremity weakness from a lumbar bone spur, which he believes contributed to his fall. He is hopeful the upcoming surgery will improve his right leg strength. He currently has bilateral lower extremity weakness, further impacted by the new left ankle fracture, and expresses concern about his ability to safely manage activities of daily living at home. He denies any additional concerns at this time. Medications & Allergies Home Medications: Home Medication List Losartan Potassium 50 mg PO DAILY 07/03/22 [History Confirmed 10/10/25] Sildenafil Citrate 1 tab PO DAILY 08/22/25 [History Confirmed 10/10/25] Ascorbic Acid/Ascorbate Sodium [Vitamin C 500 mg Tablet Chew] 500 mg PO DAILY 10/10/25 [History Confirmed 10/10/25] Gabapentin [Neurontin ] 300 mg PO BID 10/10/25 [History Confirmed 10/10/25] Allergies/Adverse Reactions: Allergies Allergy/AdvReac Type Severity Reaction Status Date / Time No Known Drug Allergies Allergy Verified 10/09/25 16:39 - Past Medical History Past Medical History: Yes Neurological History: No Pertinent History ENT History: Cataracts Cardiac History: Hypertension Respiratory History: No Pertinent History Endocrine Medical History: No Pertinent History Musculoskelatal History: Degenerative Disk Disease, Fractures GI Medical History: No Pertinent History History: No Pertinent History Pyscho-Social History: No Pertinent History Male Reproductive Disorders: No Pertinent History Comment: hearing loss. left lower leg/ankle fracture - Past Surgical History Past Surgical History: Yes Neuro Surgical History: No Pertinent History Cardiac History: No Pertinent History Respiratory Surgery: No Pertinent History GI Surgical History: No Pertinent History Genitourinary Surgical Hx: No Pertinent History Musculskeletal Surgical Hx: Orthopedic Surgery Male Surgical History: Vasectomy Other Surgical History: DISK REPLACEMENT - Social History Smoking Status: Never smoker Exposure to second hand smoke: No Alcohol: None Drug Use: none - Social Determinants of Health Will the patient participate in the screening: Declined to provide Physical Exam - Narrative Narrative Physical Exam: Podiatry Physical Exam Results - Labs Lab/Micro Results: Lab Results-Last 24 Hours 10/12/25 10/12/25 Range/Units 05:03 05:03 WBC 8.6 (4.23-9.07) x10^3/uL RBC 4.15 L (4.63-6.08) x10^6/uL Hgb 12.5 L (13.7-17.5) g/dL Hct 38.3 L (40.1-51.0) % MCV 92.3 H (79.0-92.2) fL MCH 30.1 (25.7-32.2) pg MCHC 32.6 (32.3-36.5) g/dL RDW 12.8 (11.6-14.4) % Plt Count 203 (163-337) x10^3/uL MPV 10.5 (9.4-12.4) fL Sodium 134 L (135-145) mmol/L Potassium 4.0 (3.5-5.1) mmol/L Chloride 101 (98-107) mmol/L Carbon Dioxide 27 (22-30) mmol/L Anion Gap 10.3 (5-15) MEQ/L BUN 14 (9-20) mg/dL Creatinine 0.92 (0.66-1.25) mg/dL Estimated GFR 90.6 ML/MIN Glucose 102 (74-106) mg/dL Calcium 8.4 (8.4-10.2) mg/dL Assessment/Plan (1) Chronic back pain Current Visit: Yes Status: Acute Code(s): M54.9 - DORSALGIA, UNSPECIFIED; G89.29 - OTHER CHRONIC PAIN (2) Right leg weakness Current Visit: Yes Status: Acute Code(s): R29.898 - OTH SYMPTOMS AND SIGNS INVOLVING THE MUSCULOSKELETAL SYSTEM (3) HTN (hypertension) Current Visit: Yes Status: Chronic Code(s): I10 - ESSENTIAL (PRIMARY) HYPERTENSION (4) Obesity (BMI 30.0-34.9) Current Visit: Yes Status: Chronic Code(s): E66.811 - OBESITY, CLASS 1 (5) Fall Current Visit: No Status: Acute Code(s): W19.XXXA - UNSPECIFIED FALL, INITIAL ENCOUNTER (6) Fracture of distal end of fibula Current Visit: No Status: Acute Assessment & Plan: s/p open reduction internal fixation of left ankle with syndesmosis reduction. Radiograph reviewed and discussed with patient Ok to d.c. to rehab when criteria are met and PT/OT assessment is completed. Non-weightbearing on the left operative ankle. Leave dressing clean, dry, and intact. Continue Levaquin as ordered in-house to complete the 10-day course. Continue ASA 325 as ordered. Pain meds: 7.5/325 mg Percocet. Follow up in 1 week. Code(s): S82.839A - OTH FRACTURE OF UPPER AND LOWER END OF UNSP FIBULA, INIT
[2025-10-12 12:32] LABS: Glucose, Urine Negative (Negative); Protein,Urine Dip Negative (Negative); WBC 0-2 /HPF (0-5)
--- NOTE | 2025-10-12 12:38 | PCM.NOTE ---
Date and Time: 10/12/25 1232 Subjective Assessment: 10/10/25 is a 70 year old male PMHX of HTN, and DDD. Pt was admitted per request of podiatry post op Left ankle fracture and repair today. He is wanting placement to rehab at [facility] if possible. He is scheduled to have a surgery with Dr. Lindo a neurosurgeon from [facility] on the for spinal stenosis. He has chronic back pain with chronic weakness of Right lower extremity from a bone spur in the lumbar region. He is hoping the surgery will help with his right leg weakness. He reports this is what caused his fall. He now has BLLE weakness with the Left ankle fracture and concerned about ADL's at home. Pt denies any further concerns at this time. 10/11/25 Pt resting in bed. He did not do well with PT/OT today per verbal report. Pt awaiting placement to rehab if accepted. CM working on placement. WBC 13.1. He post op day #2 from surgery with podiatry. Awaiting podiatry note and recs. Pain well controlled at this time. Pt denies any further concerns. * Started Levaquin 500mg daily per Dr. Morel- podiatry. 10/12/25 Patient is sitting up in bed. He states that his pain is well-controlled at this time. He is having urinary retention and a bladder scan was completed by nurse and verifies this with >700 ml seen. A an catheter was placed with a UA sample pending. Patient to DC to rehab tomorrow at 10 AM. Continue Levaquin for left ankle fracture postop surgery per podiatry. Awaiting podiatry note. Patient denies any further concerns at this time. - Review of Systems Constitutional: Weakness (BLLE), No Fever, No Chills Eyes: No Symptoms Ears, Nose, & Throat: No Symptoms Respiratory: No Cough, No Short Of Breath Cardiac: No Chest Pain, No Edema, No Syncope Abdominal/Gastrointestinal: No Abdominal Pain, No Nausea, No Vomiting, No Diarrhea Genitourinary Symptoms: Urinary Retention, No Dysuria Musculoskeletal: Injury (LLE wrapped), No Back Pain, No Neck Pain Skin: No Rash Neurological: No Dizziness, No Focal Weakness, No Sensory Changes Psychological: No Symptoms Endocrine: No Symptoms Hematologic/Lymphatic: No Symptoms Immunological/Allergic: No Symptoms Objective Exam General Appearance: no apparent distress, alert, obese Neurologic Exam: alert, oriented x 3, cooperative, normal mood/affect, nml cerebellar function, sensation nml, motor weakness, No motor deficits Skin Exam: normal color, warm, dry Wound Assessment: Skin/Wound Assessment Wound/Incision Assessment Start: 10/11/25 04:10 Text: Status: Active Freq: Q4H Protocol: Document 10/12/25 12:00 AR (Rec: 10/12/25 12:31 AR [id number]) Wound/Incision Assessment Left ankle Wound Assessment Shift Assessment Wound Type Incision Wound Stage Non Pressure Wound Dressing Status Dry & Intact Drainage Amount None Comment DRESSING CDI Wound Photo Photo Taken No Eye Exam: PERRL, EOMI, eyes nml inspection Ears, Nose, Throat Exam: normal ENT inspection, pharynx normal, moist mucous membranes Neck Exam: normal inspection, non-tender, supple, full range of motion Respiratory Exam: normal breath sounds, lungs clear, No respiratory distress Cardiovascular Exam: regular rate/rhythm, normal heart sounds Gastrointestinal/Abdomen Exam: soft, No tenderness, No mass Extremity Exam: normal inspection, normal range of motion, limited range of motion (LLE) Back Exam: normal inspection, normal range of motion, decreased range of motion (lumbar), No CVA tenderness, No vertebral tenderness Male Genitalia Exam: deferred Rectal Exam: deferred Objective Data Vital Signs: Vital Signs - 24 hr Temp Pulse Resp BP Pulse Ox 10/12/25 12:00 98.1 F 71 18 134/61 96 10/12/25 07:12 98.1 F 61 18 117/64 94 L 10/12/25 04:00 18 10/12/25 03:55 98 F 75 18 116/63 92 L 10/11/25 23:57 98.3 F 68 18 120/58 93 L 10/11/25 23:40 18 10/11/25 20:00 98.6 F 86 18 126/64 93 L 10/11/25 16:00 98.0 F 80 18 131/70 92 L Pain Assessment - Last Documented Pain Intensity [Left] 3 Pain Intensity 2 Pain Scale Used 0-10 Pain Scale Intake and Output: Intake & Output 10/10/25 10/11/25 10/12/25 10/13/25 11:59 11:59 11:59 11:59 Intake Total 240 120 Output Total 1705 369 496 Balance -1343 -902 -928 Weight 111.13 kg 115 kg Lab Results: Lab Results-Last 24 Hours 10/12/25 10/12/25 Range/Units 05:03 05:03 WBC 8.6 (4.23-9.07) x10^3/uL RBC 4.15 L (4.63-6.08) x10^6/uL Hgb 12.5 L (13.7-17.5) g/dL Hct 38.3 L (40.1-51.0) % MCV 92.3 H (79.0-92.2) fL MCH 30.1 (25.7-32.2) pg MCHC 32.6 (32.3-36.5) g/dL RDW 12.8 (11.6-14.4) % Plt Count 203 (163-337) x10^3/uL MPV 10.5 (9.4-12.4) fL Sodium 134 L (135-145) mmol/L Potassium 4.0 (3.5-5.1) mmol/L Chloride 101 (98-107) mmol/L Carbon Dioxide 27 (22-30) mmol/L Anion Gap 10.3 (5-15) MEQ/L BUN 14 (9-20) mg/dL Creatinine 0.92 (0.66-1.25) mg/dL Estimated GFR 90.6 ML/MIN Glucose 102 (74-106) mg/dL Calcium 8.4 (8.4-10.2) mg/dL Medications: Medications Generic Name Dose Route Start Last Admin Trade Name Jesus PRN Reason Stop Dose Admin Acetaminophen 650 mg 10/10/25 19:40 10/12/25 03:43 Acetaminophen 325 Mg Tablet PO 11/09/25 19:39 650 mg Q6H PRN PRN Administration PAIN AND/OR FEVER Hydrocodone Bitart/Acetaminophen 1 tab 10/10/25 18:23 10/12/25 05:23 Hydrocodone /Apap 7.5/325 Mg 1 Each Tablet PO 10/15/25 18:22 1 tab Q6H PRN PRN Administration PAIN Ascorbic Acid 500 mg 10/11/25 10:00 10/12/25 09:58 Ascorbic Acid 500 Mg Tablet PO 11/10/25 09:59 Not Given DAILY MATTHEW Aspirin 325 mg 12/03/25 10:00 10/12/25 09:58 Aspirin 325 Mg Tablet.Ec PO 11/10/25 09:59 Not Given DAILY MATTHEW Enoxaparin Sodium 40 mg 10/11/25 13:21 10/12/25 09:58 Enoxaparin Sodium 40 Mg/0.4 Ml Syringe SQ 11/10/25 13:20 Not Given DAILY MATTHEW Gabapentin 300 mg 10/10/25 22:00 10/12/25 09:52 Gabapentin 300 Mg Capsule PO 11/09/25 21:59 300 mg BID MATTHEW Administration Levofloxacin 500 mg 10/11/25 14:00 10/12/25 09:52 Levofloxacin 500 Mg Tablet PO 11/10/25 13:59 500 mg DAILY MATTHEW Administration Losartan Potassium 50 mg 10/11/25 10:00 10/12/25 09:52 Losartan Potassium 50 Mg Tablet PO 11/10/25 09:59 50 mg DAILY MATTHEW Administration Miscellaneous Information 1 each 10/11/25 07:30 Medication Intervention 1 Each Each 11/10/25 07:29 .RN TO CHECK MATTHEW Naloxone HCl 0.4 mg 10/10/25 19:39 Naloxone Hcl 0.4 Mg/Ml Ml IV 11/09/25 19:38 PRN PRN RESPIRATORY DEPRESSION Ondansetron HCl 4 mg 10/10/25 19:46 Ondansetron Hcl 4 Mg/2 Ml Vial IV 11/09/25 19:45 Q6H PRN PRN NAUSEA/VOMITING Pantoprazole Sodium 20 mg 10/11/25 13:30 10/12/25 09:52 Pantoprazole 20 Mg Tab PO 11/10/25 13:29 20 mg DAILY MATTHEW Administration Discontinued Medications Generic Name Dose Route Start Last Admin Trade Name Freq PRN Reason Stop Dose Admin Bupivacaine HCl Confirm 10/10/25 14:14 Bupivacaine Hcl/Pf 150 Mg/30 Ml Vial Administered 10/10/25 14:15 Dose 150 mg .ROUTE .STK-MED ONE Bupivacaine Liposome Confirm 10/10/25 14:14 Bupivacaine Liposome/Pf 133 Mg/10 Ml Administered 10/10/25 14:15 Dose 266 mg IJ .STK-MED ONE Cefazolin Sodium Confirm 10/10/25 10:40 Cefazolin Sodium 2 Gm Vial Administered 10/10/25 10:41 Dose 2 gm .ROUTE .STK-MED ONE Cefazolin Sodium Confirm 10/10/25 15:07 Cefazolin Sodium 1 Gm Vial Administered 10/10/25 15:08 Dose 1 g .ROUTE .STK-MED ONE Dexamethasone Sodium Phosphate Confirm 10/10/25 14:07 Dexamethasone Sodium Phosphate 4 Mg/Ml Vial Administered 10/10/25 14:08 Dose 4 mg .ROUTE .STK-MED ONE Dexamethasone Sodium Phosphate Confirm 10/10/25 15:10 Dexamethasone Sodium Phosphate 4 Mg/Ml Vial Administered 10/10/25 15:11 Dose 4 mg .ROUTE .STK-MED ONE Dexmedetomidine/Sodium Chloride Confirm 10/10/25 14:07 Dexmedetomidine In 0.9 % Nacl 80 Mcg/20 Ml Vial Administered 10/10/25 14:08 Dose 80 mcg IV .STK-MED ONE Ephedrine Sulfate Confirm 10/10/25 15:20 Ephedrine Sulfate 50 Mg/Ml Administered 10/10/25 15:21 Dose 50 mg .ROUTE .STK-MED ONE Fentanyl Citrate Confirm 10/10/25 14:07 Fentanyl Citrate 100 Mcg/2 Ml* Vial Administered 10/10/25 14:08 Dose 100 mcg .ROUTE .STK-MED ONE Gabapentin 300 mg 10/10/25 22:00 10/10/25 22:04 Gabapentin 300 Mg Capsule PO 10/10/25 22:01 Not Given ONCE ONE Lactated Ringer's Confirm 10/10/25 10:01 Lactated Ringers Administered 10/10/25 10:02 Dose 1,000 mls @ ud IV .STK-MED ONE Cefazolin Sodium 2 gm/ Sodium 100 mls @ 200 mls/hr 10/10/25 10:05 10/10/25 10:42 Chloride IV 10/10/25 10:34 200 mls/hr ONCALLTOOR ONE Administration Lactated Ringer's 1,000 mls @ 50 mls/hr 10/10/25 10:30 10/10/25 10:07 Lactated Ringers IV 11/09/25 10:29 50 mls/hr .Q20H MATTHEW Administration Sodium Chloride Confirm 10/10/25 10:40 Sodium Chloride 0.9% Administered 10/10/25 10:41 Dose 100 mls @ ud .ROUTE .STK-MED ONE Lidocaine HCl Confirm 10/10/25 14:07 Lidocaine - Mpf 2% 5 Ml Vial Administered 10/10/25 14:08 Dose 5 ml .ROUTE .STK-MED ONE Lidocaine HCl Confirm 10/10/25 14:14 Lidocaine Hcl 4 Ml Solution (Lta Kit) Administered 10/10/25 14:15 Dose 4 ml TP .STK-MED ONE Midazolam HCl Confirm 10/10/25 14:07 Midazolam Hcl 2 Mg/2 Ml Vial Administered 10/10/25 14:08 Dose 2 mg .ROUTE .STK-MED ONE Ondansetron HCl Confirm 10/10/25 14:07 Ondansetron Hcl 4 Mg/2 Ml Vial Administered 10/10/25 14:08 Dose 4 mg .ROUTE .STK-MED ONE Pantoprazole Sodium 20 mg 10/12/25 10:00 Pantoprazole 20 Mg Tab PO 11/11/25 09:59 DAILY MATTHEW Propofol Confirm 10/10/25 14:07 Propofol 200 Mg/20 Ml Vial Administered 10/10/25 14:08 Dose 200 mg IV .STK-MED ONE Rocuronium [place] Confirm 10/10/25 14:07 Rocuronium [place] 50 Mg/5 Ml Vial Administered 10/10/25 14:08 Dose 50 mg IV .STK-MED ONE Sugammadex Sodium Confirm 10/10/25 16:01 Sugammadex Sodium 200 Mg/2 Ml Vial Administered 10/10/25 16:02 Dose 200 mg IV .STK-MED ONE Multi-Disciplinary Progress Notes: Multi-Disciplinary Progress Notes 10/12/25 11:31 Occupational Therapy Note by Odilia(L#[id number])Lynette Mr. Jauregui found sitting on edge of bed looking out window with his spouse present. He req min assist to hold LLE up while moving from sitting on one side of bed to the other side in prep for transfer up into chair. He req min assist x 2 with stand by/CGA of a third person in case his RLE gave out as it does frequently d/t his back (thus why he needs surgery next week). He was positioned sitting up in chair with LLE elevated and resting on pillow with call light in reach. Initialized on 10/12/25 11:31 - END OF NOTE 10/12/25 08:28 OT Plan of Care Note by Odilia(Kareem#[id number]),Lynette OT Eval OT Inpatient Eval and POC Start: 10/10/25 20:07 Freq: ONCE Status: Active Protocol: Created 10/10/25 20:08 [facility] (Rec: 10/10/25 20:08 [facility] -[id number]) Document 10/11/25 21:44 AL (Rec: 10/11/25 22:05 AL [id number]) OT Evaluation Subjective PATIENT STATES HE IS SCHEDULED TO HAVE BACK SURGERY IN [place] ON 10/18. HIS BACK ISSUES HAVE CAUSED HIM TO HAVE MULTIPLE RECENT FALLS AND HE HAS TO GET THIS FIXED IF POSSIBLE. Pertinent Past Medical History SEE MEDICAL CHART FOR SPECIFICS; Prior Level of Function LIVES AT HOME WITH HIS SPOUSE AND HAS RECENTLY BEEN SUFFERRING WITH SEVERE BACK PAIN AND SCIATICA WITH RESULTING FALLS. MOST RECENT FALL CAUSED HIM TO HAVE LLE FRACTURE WITH ORIF YESTERDAY. HE HAS REQ ASSIST FROM SPOUSE FOR ADLS AND MOBILITY RECENTLY HOWEVER HE IS TO THE POINT NOW THAT HE FEELS HE NEEDS MORE ASSIST THAN SHE CAN PROVIDE UNTIL HE GETS HIS BACK FIXED AND REHABS FROM [facility]. Equipment at Home Prior to Admission Walker,Cane,Wheelchair,Mercerizing Range Controller ,Sock-aid Home Setup Tub/Shower Combination,Walk-In -Shower,Standard Height Toilet ,Grab Bar Comment PATIENT REPORTS HE AND SPOUSE BUILT THEIR HOME TO BE HANDICAP ACCESSIBLE. HAS NO STEPS HOME IS ALL ONE LEVEL AND HAS WIDENED DOORWAYS FOR WHEELCHAIR ACCESSIBLITY IF NEEDED. Date 10/11/25 Feeding WFL Grooming WFL Comment AFTER SET-UP Bathing Impaired Comment MOD ASSIST LE Dressing Impaired Comment MOD ASSIST LE Toileting Impaired Bed Mobility Impaired Comment WAS ABLE TO SCOOT SELF UP IN BED HOWEVER WITH MUCH PAIN WHEN HE ALTERRED ANGLE OF HEAD OF BED TO GET MORE SUPINE. IS MOST COMFORTABLE SITTING UPRIGHT IN BED. Toilet Transfers Impaired Functional Transfers Impaired Range of Motion WFL Comment BUE WFL Coordination BUE WFL Functional Strength BUE MMT 4/5 OVERALL Functional Endurance FAIR ENDURANCE FOR 15 MIN ADL; LIMITED THE MOST D/T CURRENT BACK PAIN; LLE STILL UNDER NERVE BLOCK THUS NO PAIN REPORTED Cognition A&OX4 Pain REPORTS BACK PAIN AT REST TO BE MINIMAL HOWEVER WITH ANY MOVEMENT (EVEN CHANGING ANGLE OF HOB) PAIN INCREASES TO ALMOST 10/10. OT Plan Of Care Date of Evaluation 10/11/25 Treatment Diagnosis BLLE WEAKNESS S/P ORIF Precaution/Orders as written OT EVAL AND TX Teaching Recipient Patient,Significant Other Patient is Aware of Diagnosis and Yes Prognosis Patient is receptive to Plan of Care and Yes contributory towards OT goals Functional Problem List DECREASED INDEPENDENCE WITH ADLS AND FUNCTIONAL MOBILITY Therapuetic Interventions THERAPUETIC EXERCISES, FUNCTIONAL MOBILITY AND ADL RETRAINING, A.E./DME TRAINING Functional Goals of Treatment 1) MR. JAUREGUI WILL BE INDEPENDENT WITH ALL OT HEPS AND RECOMMENDATIONS FOR D/C. 2) MR. JAUREGUI WILL VERBALIZE UNDERSTANDING OF ALL OT RECOMMENDATIONS FOR A.E./DME. 3) MR. JAUREGUI WILL REQ MIN ASSIST FOR BED MOBILITY AND TO GET TO SITTING ON EDGE OF BED FOR ADL PARTICIPATION. Frequency/Duration 5X/WK Rehabilitation Potential for Goals/ Excellent Barriers to Progress Discharge Recommendations/Plan OTR RECOMMENDS PATIENT BENEFIT FROM ECF/REHAB STAY UNTIL HE IS ABLE TO SAFELY PERFORM FUNCTIONAL TRANSFERS, ADLS, AND MOBILITY WITH MINIMAL ASSIST FROM SPOUSE. Comment RECOMMEND TOILET RISE WITH GRAB BARS OR BSC FOR WHEN HE D /C TO HOME. BOTH PATIENT AND SPOUSE WERE EDUCATED IN ALL OTR RECOMMENDATIONS. Medical & Surgical History Past Medical History Yes Neurological History No Pertinent History ENT History Cataracts Endocrine History No Pertinent History Respiratory History No Pertinent History Cardiac History Hypertension GI History No Pertinent History History No Pertinent History Male Reproductive Disorders No Pertinent History Musculoskeletal History Degenerative Disk Disease, Fractures Psycho-Social History No Pertinent History Other Medical History hearing loss left lower leg/ankle fracture Past Surgical History Yes Hx Anesthesia Reactions No Hx Malignant Hyperthermia No Neurological Surgical History No Pertinent History ENT Surgical History Cataract Surgery Respiratory Surgical History No Pertinent History Cardiac Surgical History No Pertinent History Gastrointestinal Surgical History No Pertinent History Genitourinary Surgical History No Pertinent History Male Surgical History Vasectomy Musculoskeletal Surgical History Orthopedic Surgery Other Surgical History DISK REPLACEMENT Alcohol None Drug Use none Hx Substance Use Treatment No Initialized on 10/12/25 08:28 - END OF NOTE 10/11/25 12:53 Case Management Note by Nancy Arias DONE, NO LEVEL II REQUIRED-COPIES PLACED ON CHART FULL REFERRAL WITH [facility] FAXED TO [facility] Initialized on 12/03/25 12:53 - END OF NOTE Assessment/Plan (1) Fracture of distal end of fibula Current Visit: No Status: Acute Code(s): S82.839A - OTH FRACTURE OF UPPER AND LOWER END OF UNSP FIBULA, INIT (2) Fall Current Visit: No Status: Acute Code(s): W19.XXXA - UNSPECIFIED FALL, I NITIAL ENCOUNTER (3) Chronic back pain Current Visit: Yes Status: Acute Code(s): M54.9 - DORSALGIA, UNSPECIFIED; G89.29 - OTHER CHRONIC PAIN (4) Right leg weakness Current Visit: Yes Status: Acute Code(s): R29.898 - OTH SYMPTOMS AND SIGNS INVOLVING THE MUSCULOSKELETAL SYSTEM (5) HTN (hypertension) Current Visit: Yes Status: Chronic Code(s): I10 - ESSENTIAL (PRIMARY) HYPERTENSION (6) Obesity (BMI 30.0-34.9) Current Visit: Yes Status: Chronic Assessment & Plan: (1) Fracture of distal end of fibula Current Visit: No Status: Acute Assessment & Plan: - POD #1 repair by podiatry - Right ankle XR: - Intraoperative fluoroscopy provided for 2 minute 24 seconds. 18 digital spot images submitted for interpretation ultimately demonstrates lateral fixation plate/transverse screws fixating lateral malleolus fracture in good apposition/alignment. Distal tibia/fibula also demonstrates transverse tunnel radiolucency with medial orthopedic button. Correlate with intraoperative findings/report. - Podiatry following - Narcotic pain control - Tylenol for pain PRN - RICE techniques - CBC, CMP reviewed - IVF stopped - Cefazolin gave in OR - Narcan PRN resp depression - Non- weight bearing right ankle 10/11 - Podiatry note pending - Start Levaquin 500mg PO daily per Dr. Morel - + Weakness of BLLE - Pt not not do well with PT/OT today per verbal reports - CM working on placement to rehab - CBC, CMP reviewed - WBC 13.1 10/12 - WBC ok - CBC, CMP reviewed - Rehab in AM Code(s): S82.839A - OTH FRACTURE OF UPPER AND LOWER END OF UNSP FIBULA, INIT (2) Fall Current Visit: No Status: Acute Assessment & Plan: - See plan above - CBC, CMP reviewed - From Chronic RLE weakness - PT/OT eval with rehab placement Code(s): W19.XXXA - UNSPECIFIED FALL, INITIAL ENCOUNTER (3) Chronic back pain Current Visit: Yes Status: Acute Assessment & Plan: - Continue gabapentin - HX spinal stenosis - Has upcoming surgery with Dr. Lindo- Neurosurgery on October 18 - Would like to go to [place] for rehab post op as his neurosurgeon has privileges there. - Chronic weakness of RLE Code(s): M54.9 - DORSALGIA, UNSPECIFIED; G89.29 - OTHER CHRONIC PAIN (4) Right leg weakness Current Visit: Yes Status: Acute Assessment & Plan: - Chronic - See Chronic back pain plan above Code(s): R29.898 - OTH SYMPTOMS AND SIGNS INVOLVING THE MUSCULOSKELETAL SYSTEM (5) HTN (hypertension) Current Visit: Yes Status: Chronic Assessment & Plan: - BP stable - Continue home BP med Code(s): I10 - ESSENTIAL (PRIMARY) HYPERTENSION (6) Obesity (BMI 30.0-34.9) Current Visit: Yes Status: Chronic Assessment & Plan: - Advised diet and exercise control Code(s): E66.811 - OBESITY, CLASS 1 Code(s): E66.811 - OBESITY, CLASS 1 (7) Acute urinary retention Current Visit: Yes Status: Acute Assessment & Plan: - > 700ml post void bladder scan - An placed for urinary retention. - CT thoracic and lumbar spine- stat - Unable to have MRI d/t screws in ankle VTE: Lovenox PPI: Protonix D/C plan: pending placement Plan of care time > 50 minutes Next of KIN: Code(s): R33.8 - OTHER RETENTION OF URINE
--- NOTE | 2025-10-12 13:44 | PCM.NOTE ---
Date and Time: 10/12/25 1341 Subjective Assessment: discussion with patient regarding rehab stay due to catastrophic instability to bilateral lower extremities. Physical Exam - Narrative Narrative Physical Exam: Podiatry Physical Exam Objective Data Vital Signs: Vital Signs - 24 hr Temp Pulse Resp BP Pulse Ox 10/12/25 12:00 98.1 F 71 18 134/61 96 10/12/25 07:12 98.1 F 61 18 117/64 94 L 10/12/25 04:00 18 10/12/25 03:55 98 F 75 18 116/63 92 L 10/11/25 23:57 98.3 F 68 18 120/58 93 L 10/11/25 23:40 18 10/11/25 20:00 98.6 F 86 18 126/64 93 L 10/11/25 16:00 98.0 F 80 18 131/70 92 L Pain Assessment - Last Documented Pain Intensity [Left] 3 Pain Intensity 2 Pain Scale Used 0-10 Pain Scale Intake and Output: Intake & Output 10/10/25 10/11/25 10/12/25 10/13/25 11:59 11:59 11:59 11:59 Intake Total 240 120 Output Total 1700 750 850 Balance -1460 -630 -850 Weight 111.13 kg 115 kg Lab Results: Lab Results-Last 24 Hours 10/12/25 10/12/25 10/12/25 Range/Units 05:03 05:03 12:20 WBC 8.6 (4.23-9.07) x10^3/uL RBC 4.15 L (4.63-6.08) x10^6/uL Hgb 12.5 L (13.7-17.5) g/dL Hct 38.3 L (40.1-51.0) % MCV 92.3 H (79.0-92.2) fL MCH 30.1 (25.7-32.2) pg MCHC 32.6 (32.3-36.5) g/dL RDW 12.8 (11.6-14.4) % Plt Count 203 (163-337) x10^3/uL MPV 10.5 (9.4-12.4) fL Sodium 134 L (135-145) mmol/L Potassium 4.0 (3.5-5.1) mmol/L Chloride 101 (98-107) mmol/L Carbon Dioxide 27 (22-30) mmol/L Anion Gap 10.3 (5-15) MEQ/L BUN 14 (9-20) mg/dL Creatinine 0.92 (0.66-1.25) mg/dL Estimated GFR 90.6 ML/MIN Glucose 102 (74-106) mg/dL Calcium 8.4 (8.4-10.2) mg/dL Urine Color Yellow (Yellow) Urine Appearance Clear (Clear) Urine pH 6.0 (4.6-8.0) Ur Specific [place] 1.015 (1.005-1.030) Urine Protein Negative (Negative) Urine Glucose (UA) Negative (Negative) mg/dL Urine Ketones Negative (Negative) Urine Blood Trace (Negative) Urine Nitrite Negative (Negative) Urine Bilirubin Negative (Negative) Urine Urobilinogen 1.0 A (0.2) mg/dL Ur Leukocyte Esterase Negative (Negative) U Hyaline Cast (Auto) NONE SEEN (0-2) /LPF Urine Microscopic RBC 3-5 (0-5) /HPF Urine Microscopic WBC 0-2 (0-5) /HPF Ur Epithelial Cells None Seen (None Seen) /HPF Urine Bacteria None Seen (None Seen) /HPF Urine Culture Reflexed NO (NO) Radiology Exams: Radiology Procedures Category Date Time Status LUMBAR SPINE WITH [CT] Stat Exams 10/12/25 12:43 Ordered THORACIC SPINE W CONTRAST [CT] Stat Exams 10/12/25 12:43 Ordered Medications: Medications Generic Name Dose Route Start Last Admin Trade Name Freq PRN Reason Stop Dose Admin Acetaminophen 650 mg 10/10/25 19:40 10/12/25 03:43 Acetaminophen 325 Mg Tablet PO 11/09/25 19:39 650 mg Q6H PRN PRN Administration PAIN AND/OR FEVER Hydrocodone Bitart/Acetaminophen 1 tab 10/10/25 18:23 10/12/25 05:23 Hydrocodone /Apap 7.5/325 Mg 1 Each Tablet PO 10/15/25 18:22 1 tab Q6H PRN PRN Administration PAIN Ascorbic Acid 500 mg 10/11/25 10:00 10/12/25 09:58 Ascorbic Acid 500 Mg Tablet PO 11/10/25 09:59 Not Given DAILY MATTHEW Aspirin 325 mg 10/11/25 10:00 10/12/25 09:58 Aspirin 325 Mg Tablet.Ec PO 11/10/25 09:59 Not Given DAILY MATTHEW Enoxaparin Sodium 40 mg 10/11/25 13:21 10/12/25 09:58 Enoxaparin Sodium 40 Mg/0.4 Ml Syringe SQ 11/10/25 13:20 Not Given DAILY MATTHEW Gabapentin 300 mg 10/10/25 22:00 10/12/25 09:52 Gabapentin 300 Mg Capsule PO 11/09/25 21:59 300 mg BID MATTHEW Administration Levofloxacin 500 mg 10/11/25 14:00 10/12/25 09:52 Levofloxacin 500 Mg Tablet PO 11/10/25 13:59 500 mg DAILY MATTHEW Administration Losartan Potassium 50 mg 10/11/25 10:00 10/12/25 09:52 Losartan Potassium 50 Mg Tablet PO 11/10/25 09:59 50 mg DAILY MATTHEW Administration Miscellaneous Information 1 each 10/11/25 07:30 Medication Intervention 1 Each Each 11/10/25 07:29 .RN TO CHECK MATTHEW Naloxone HCl 0.4 mg 10/10/25 19:39 Naloxone Hcl 0.4 Mg/Ml Ml IV 11/09/25 19:38 PRN PRN RESPIRATORY DEPRESSION Ondansetron HCl 4 mg 10/10/25 19:46 Ondansetron Hcl 4 Mg/2 Ml Vial IV 11/09/25 19:45 Q6H PRN PRN NAUSEA/VOMITING Pantoprazole Sodium 20 mg 10/11/25 13:30 10/12/25 09:52 Pantoprazole 20 Mg Tab PO 11/10/25 13:29 20 mg DAILY MATTHEW Administration Discontinued Medications Generic Name Dose Route Start Last Admin Trade Name Freq PRN Reason Stop Dose Admin Bupivacaine HCl Confirm 10/10/25 14:14 Bupivacaine Hcl/Pf 150 Mg/30 Ml Vial Administered 10/10/25 14:15 Dose 150 mg .ROUTE .STK-MED ONE Bupivacaine Liposome Confirm 10/10/25 14:14 Bupivacaine Liposome/Pf 133 Mg/10 Ml Administered 10/10/25 14:15 Dose 266 mg IJ .STK-MED ONE Cefazolin Sodium Confirm 10/10/25 10:40 Cefazolin Sodium 2 Gm Vial Administered 10/10/25 10:41 Dose 2 gm .ROUTE .STK-MED ONE Cefazolin Sodium Confirm 10/10/25 15:07 Cefazolin Sodium 1 Gm Vial Administered 10/10/25 15:08 Dose 1 g .ROUTE .STK-MED ONE Dexamethasone Sodium Phosphate Confirm 10/10/25 14:07 Dexamethasone Sodium Phosphate 4 Mg/Ml Vial Administered 10/10/25 14:08 Dose 4 mg .ROUTE .STK-MED ONE Dexamethasone Sodium Phosphate Confirm 10/10/25 15:10 Dexamethasone Sodium Phosphate 4 Mg/Ml Vial Administered 10/10/25 15:11 Dose 4 mg .ROUTE .STK-MED ONE Dexmedetomidine/Sodium Chloride Confirm 10/10/25 14:07 Dexmedetomidine In 0.9 % Nacl 80 Mcg/20 Ml Vial Administered 10/10/25 14:08 Dose 80 mcg IV .STK-MED ONE Ephedrine Sulfate Confirm 10/10/25 15:20 Ephedrine Sulfate 50 Mg/Ml Administered 10/10/25 15:21 Dose 50 mg .ROUTE .STK-MED ONE Fentanyl Citrate Confirm 10/10/25 14:07 Fentanyl Citrate 100 Mcg/2 Ml* Vial Administered 10/10/25 14:08 Dose 100 mcg .ROUTE .STK-MED ONE Gabapentin 300 mg 10/10/25 22:00 10/10/25 22:04 Gabapentin 300 Mg Capsule PO 10/10/25 22:01 Not Given ONCE ONE Lactated Ringer's Confirm 10/10/25 10:01 Lactated Ringers Administered 10/10/25 10:02 Dose 1,000 mls @ ud IV .STK-MED ONE Cefazolin Sodium 2 gm/ Sodium 100 mls @ 200 mls/hr 10/10/25 10:05 10/10/25 10:42 Chloride IV 10/10/25 10:34 200 mls/hr ONCALLTOOR ONE Administration Lactated Ringer's 1,000 mls @ 50 mls/hr 10/10/25 10:30 10/10/25 10:07 Lactated Ringers IV 11/09/25 10:29 50 mls/hr .Q20H MATTHEW Administration Sodium Chloride Confirm 10/10/25 10:40 Sodium Chloride 0.9% Administered 10/10/25 10:41 Dose 100 mls @ ud .ROUTE .STK-MED ONE Lidocaine HCl Confirm 10/10/25 14:07 Lidocaine - Mpf 2% 5 Ml Vial Administered 10/10/25 14:08 Dose 5 ml .ROUTE .STK-MED ONE Lidocaine HCl Confirm 10/10/25 14:14 Lidocaine Hcl 4 Ml Solution (Lta Kit) Administered 10/10/25 14:15 Dose 4 ml TP .STK-MED ONE Midazolam HCl Confirm 10/10/25 14:07 Midazolam Hcl 2 Mg/2 Ml Vial Administered 10/10/25 14:08 Dose 2 mg .ROUTE .STK-MED ONE Ondansetron HCl Confirm 10/10/25 14:07 Ondansetron Hcl 4 Mg/2 Ml Vial Administered 10/10/25 14:08 Dose 4 mg .ROUTE .STK-MED ONE Pantoprazole Sodium 20 mg 10/12/25 10:00 Pantoprazole 20 Mg Tab PO 11/11/25 09:59 DAILY MATTHEW Propofol Confirm 10/10/25 14:07 Propofol 200 Mg/20 Ml Vial Administered 10/10/25 14:08 Dose 200 mg IV .STK-MED ONE Rocuronium [place] Confirm 10/10/25 14:07 Rocuronium [place] 50 Mg/5 Ml Vial Administered 10/10/25 14:08 Dose 50 mg IV .STK-MED ONE Sugammadex Sodium Confirm 10/10/25 16:01 Sugammadex Sodium 200 Mg/2 Ml Vial Administered 10/10/25 16:02 Dose 200 mg IV .STK-MED ONE Multi-Disciplinary Progress Notes: Multi-Disciplinary Progress Notes 10/12/25 11:31 Occupational Therapy Note by Odilia(Kareem#[id number])Lynette Mr. Jauregui found sitting on edge of bed looking out window with his spouse present. He req min assist to hold LLE up while moving from sitting on one side of bed to the other side in prep for transfer up into chair. He req min assist x 2 with stand by/CGA of a third person in case his RLE gave out as it does frequently d/t his back (thus why he needs surgery next week). He was positioned sitting up in chair with LLE elevated and resting on pillow with call light in reach. Initialized on 10/12/25 11:31 - END OF NOTE 10/12/25 08:28 OT Plan of Care Note by Odilia(Kareem#[id number])Lynette OT Eval OT Inpatient Eval and POC Start: 10/10/25 20:07 Freq: ONCE Status: Active Protocol: Created 10/10/25 20:08 [facility] (Rec: 10/10/25 20:08 [facility] -[id number]) Document 10/11/25 21:44 [place] (Rec: 10/11/25 22:05 AL [id number]) OT Evaluation Subjective PATIENT STATES HE IS SCHEDULED TO HAVE BACK SURGERY IN [place] ON 10/18. HIS BACK ISSUES HAVE CAUSED HIM TO HAVE MULTIPLE RECENT FALLS AND HE HAS TO GET THIS FIXED IF POSSIBLE. Pertinent Past Medical History SEE MEDICAL CHART FOR SPECIFICS; Prior Level of Function LIVES AT HOME WITH HIS SPOUSE AND HAS RECENTLY BEEN SUFFERRING WITH SEVERE BACK PAIN AND SCIATICA WITH RESULTING FALLS. MOST RECENT FALL CAUSED HIM TO HAVE LLE FRACTURE WITH ORIF YESTERDAY. HE HAS REQ ASSIST FROM SPOUSE FOR ADLS AND MOBILITY RECENTLY HOWEVER HE IS TO THE POINT NOW THAT HE FEELS HE NEEDS MORE ASSIST THAN SHE CAN PROVIDE UNTIL HE GETS HIS BACK FIXED AND REHABS FROM [facility]. Equipment at Home Prior to Admission Walker,Cane,Wheelchair,Principal Programmer ,Sock-aid Home Setup Tub/Shower Combination,Walk-In -Shower,Standard Height Toilet ,Grab Bar Comment PATIENT REPORTS HE AND SPOUSE BUILT THEIR HOME TO BE HANDICAP ACCESSIBLE. HAS NO STEPS HOME IS ALL ONE LEVEL AND HAS WIDENED DOORWAYS FOR WHEELCHAIR ACCESSIBLITY IF NEEDED. Date 10/11/25 Feeding WFL Grooming WFL Comment AFTER SET-UP Bathing Impaired Comment MOD ASSIST LE Dressing Impaired Comment MOD ASSIST LE Toileting Impaired Bed Mobility Impaired Comment WAS ABLE TO SCOOT SELF UP IN BED HOWEVER WITH MUCH PAIN WHEN HE ALTERRED ANGLE OF HEAD OF BED TO GET MORE SUPINE. IS MOST COMFORTABLE SITTING UPRIGHT IN BED. Toilet Transfers Impaired Functional Transfers Impaired Range of Motion WFL Comment BUE WFL Coordination BUE WFL Functional Strength BUE MMT 4/5 OVERALL Functional Endurance FAIR ENDURANCE FOR 15 MIN ADL; LIMITED THE MOST D/T CURRENT BACK PAIN; LLE STILL UNDER NERVE BLOCK THUS NO PAIN REPORTED Cognition A&OX4 Pain REPORTS BACK PAIN AT REST TO BE MINIMAL HOWEVER WITH ANY MOVEMENT (EVEN CHANGING ANGLE OF HOB) PAIN INCREASES TO ALMOST 10/10. OT Plan Of Care Date of Evaluation 10/11/25 Treatment Diagnosis BLLE WEAKNESS S/P ORIF Precaution/Orders as written OT EVAL AND TX Teaching Recipient Patient,Significant Other Patient is Aware of Diagnosis and Yes Prognosis Patient is receptive to Plan of Care and Yes contributory towards OT goals Functional Problem List DECREASED INDEPENDENCE WITH ADLS AND FUNCTIONAL MOBILITY Therapuetic Interventions THERAPUETIC EXERCISES, FUNCTIONAL MOBILITY AND ADL RETRAINING, A.E./DME TRAINING Functional Goals of Treatment 1) MR. JAUREGUI WILL BE INDEPENDENT WITH ALL OT HEPS AND RECOMMENDATIONS FOR D/C. 2) MR. JAUREGUI WILL VERBALIZE UNDERSTANDING OF ALL OT RECOMMENDATIONS FOR A.E./DME. 3) MR. JAUREGUI WILL REQ MIN ASSIST FOR BED MOBILITY AND TO GET TO SITTING ON EDGE OF BED FOR ADL PARTICIPATION. Frequency/Duration 5X/WK Rehabilitation Potential for Goals/ Excellent Barriers to Progress Discharge Recommendations/Plan OTR RECOMMENDS PATIENT BENEFIT FROM ECF/REHAB STAY UNTIL HE IS ABLE TO SAFELY PERFORM FUNCTIONAL TRANSFERS, ADLS, AND MOBILITY WITH MINIMAL ASSIST FROM SPOUSE. Comment RECOMMEND TOILET RISE WITH GRAB BARS OR BSC FOR WHEN HE D /C TO HOME. BOTH PATIENT AND SPOUSE WERE EDUCATED IN ALL OTR RECOMMENDATIONS. Medical & Surgical History Past Medical History Yes Neurological History No Pertinent History ENT History Cataracts Endocrine History No Pertinent History Respiratory History No Pertinent History Cardiac History Hypertension GI History No Pertinent History History No Pertinent History Male Reproductive Disorders No Pertinent History Musculoskeletal History Degenerative Disk Disease, Fractures Psycho-Social History No Pertinent History Other Medical History hearing loss left lower leg/ankle fracture Past Surgical History Yes Hx Anesthesia Reactions No Hx Malignant Hyperthermia No Neurological Surgical History No Pertinent History ENT Surgical History Cataract Surgery Respiratory Surgical History No Pertinent History Cardiac Surgical History No Pertinent History Gastrointestinal Surgical History No Pertinent History Genitourinary Surgical History No Pertinent History Male Surgical History Vasectomy Musculoskeletal Surgical History Orthopedic Surgery Other Surgical History DISK REPLACEMENT Alcohol None Drug Use none Hx Substance Use Treatment No Initialized on 10/12/25 08:28 - END OF NOTE Assessment/Plan (1) Chronic back pain Current Visit: Yes Status: Acute Code(s): M54.9 - DORSALGIA, UNSPECIFIED; G89.29 - OTHER CHRONIC PAIN (2) Right leg weakness Current Visit: Yes Status: Acute Assessment & Plan: The patient has been admitted due to a left ankle fracture requiring operative management and protection of the limb, along with a concurrent spinal compression injury causing progressive loss of control and weakness of the right lower extremity. Because the right leg is neurologically unstable and the left leg is acutely fractured, the patient is unable to safely ambulate, transfer, or perform self-care. He is at high risk for falls, reinjury, and further neurologic decline without continuous medical supervision. The patient requires inpatient level of care to provide postoperative pain control, serial neurovascular checks, neurologic monitoring, and coordination with neurosurgery regarding the scheduled intervention for spinal compression. Observation status would not allow adequate time or medical stability to complete the necessary monitoring and therapy evaluations. The clinical expectation is that the patient will require at least three midnights of hospital care to achieve medical stability, to manage pain appropriately, and to complete the interdisciplinary assessments necessary for determining safe disposition. These needs satisfy the criteria for inpatient admission under the standard two-midnight rule. During the inpatient stay, the patient will require frequent nursing assessments, assistance with mobility, parenteral pain management, postoperative wound care, neurologic surveillance, and early PT/OT involvement. Because neither limb can safely support functional ambulationone due to fracture and the other due to neurologic deficitthe patient cannot complete therapy evaluations in a single day and cannot be safely discharged home. Once medically stabilized, the patient will require placement in a skilled rehabilitation facility. He has a postoperative left ankle that requires a period of non weight bearing followed by protected weight-bearing and assistance with transfers, as well as a right lower extremity affected by a spinal compression injury with progressive weakness and loss of motor control. These combined deficits prevent safe performance of basic activities of daily living, including toileting, bathing, dressing, and functional mobility. The patient cannot ambulate even short distances with a walker or crutches due to the syed bility of either leg to support weight safely. Rehabilitation placement is required because the patient needs daily skilled therapy to regain functional mobility, improve neuromuscular control, and p revent further deterioration. He also requires [facility] for medication management, pain control, postoperative wound care, monitoring for complications related to immobility, and continued assessment of neurologic status. Home care is not feasible due to the patients current inability to perform independent transfers or safely navigate his environment. Acute inpatient rehab or [facility] rehab is medically appropriate to ensure recovery, prevent further complications, and allow progression toward independent function. Code(s): R29.898 - OTH SYMPTOMS AND SIGNS INVOLVING THE MUSCULOSKELETAL SYSTEM (3) HTN (hypertension) Current Visit: Yes Status: Chronic Code(s): I10 - ESSENTIAL (PRIMARY) HYPERTENSION (4) Obesity (BMI 30.0-34.9) Current Visit: Yes Status: Chronic Code(s): E66.811 - OBESITY, CLASS 1 (5) Fall Current Visit: No Status: Acute Code(s): W19.XXXA - UNSPECIFIED FALL, INITIAL ENCOUNTER (6) Fracture of distal end of fibula Current Visit: No Status: Acute Code(s): S82.839A - OTH FRACTURE OF UPPER AND LOWER END OF UNSP FIBULA, INIT
[2025-10-13 07:00] LABS: Calcium 9.0 mg/dL (8.4-10.2); Carbon Dioxide 25.0 mmol/L (22-30); Creatinine 1 0.83 mg/dL (0.66-1.25); EST GLOMERULAR FILTRATION RATE 95.3 ML/MIN; Glucose 106.0 mg/dL (74-106); Potassium 4.0 mmol/L (3.5-5.1)
[2025-10-13 07:03] LABS: Hematocrit 40.5 % (40.1-51.0); Hemoglobin 13.3 g/dL (13.7-17.5); Mean Corpuscular Hemoglobin 30.0 pg (25.7-32.2); Mean Corpuscular Hgb Concent. 32.8 g/dL (32.3-36.5); Platelet Count 220 x10^3/uL (163-337); Red Blood Count 4.44 x10^6/uL (4.63-6.08); White Blood Count 7.8 x10^3/uL (4.23-9.07)
[2025-10-13 08:14] VITALS: BP 178/79; PULSE 71; RESP 20; TEMP 98.5; O2SAT 94
--- NOTE | 2025-10-13 09:16 | PCM.DS ---
Discharge Summary Date of Admission: 10/10/25 09:37 Date of Discharge: 10/13/25 Admitting Physician: WAYNE JASON MD Consults: Consults on Case 10/10/25 19:37 Consult Podiatry ROUTINE Primary Care Provider: MEGA FOSTER MICHAEL Allergies Allergies No Known Drug Allergies Allergy (Verified 10/09/25 16:39) Hospital Summary - Hospital Course Hospital Course: 10/10/25 is a The patient is a 70-year-old male with a past medical history of hypertension and degenerative disc disease who was admitted on 10/10/25 per podiatry following postoperative repair of a left ankle fracture. He expressed concern regarding his ability to perform ADLs at home due to bilateral lower extremity weakness, with chronic right leg weakness from a lumbar bone spur and recent left ankle fracture, and requested placement to rehab at [facility]. He is scheduled for spinal stenosis surgery with Dr. Lindo, neurosurgeon in [place], on 10/18/25. On 10/11, he did not tolerate PT/OT well and continued awaiting rehab placement, with case management assisting. His WBC was 13.1, pain remained well controlled, and Levaquin 500 mg daily was initiated per podiatry. On 10/12, he reported well-controlled pain but developed urinary retention, with bladder scan showing >700 mL; a An catheter was placed and UA obtained. Plans were made for discharge to rehab the following morning. On 10/13, he was scheduled for discharge at 10:00 AM. An catheter was removed with instructions to void prior to discharge, and bladder scan to follow; replacement An to be considered if retention persisted. Labs were non-concerning, CT of lumbar and thoracic spine showed no emergent findings, and UA was negative. Urinary retention was suspected to be related to anesthesia block from ankle surgery. At discharge, pain was controlled, labs stable, and he was cleared to transfer to rehab in stable condition. - Vitals & Intake/Output Vital Signs: Vital Signs Temperature 98.5 F 10/13/25 08:00 Pulse Rate 71 10/13/25 08:00 Respiratory Rate 20 10/13/25 08:00 Blood Pressure 178/79 10/13/25 08:00 O2 Sat by Pulse Oximetry 94 L 10/13/25 08:00 Intake & Output: Intake & Output 10/10/25 10/11/25 10/12/25 10/13/25 11:59 11:59 11:59 11:59 Intake Total 240 120 240 Output Total 1975.160.6624 Balance -1978 -297 -0839 Weight 111.13 kg 115 kg - Lab Result Diagrams: 10/13/25 06:30 10/13/25 06:30 Lab Results-Last 24 Hrs: Lab Results-Last 24 Hours 10/12/25 10/13/25 10/13/25 Range/Units 12:20 06:30 06:30 WBC 7.8 (4.23-9.07) x10^3/uL RBC 4.44 L (4.63-6.08) x10^6/uL Hgb 13.3 L (13.7-17.5) g/dL Hct 40.5 (40.1-51.0) % MCV 91.2 (79.0-92.2) fL MCH 30.0 (25.7-32.2) pg MCHC 32.8 (32.3-36.5) g/dL RDW 12.7 (11.6-14.4) % Plt Count 220 (163-337) x10^3/uL MPV 10.4 (9.4-12.4) fL Sodium 135 (135-145) mmol/L Potassium 4.0 (3.5-5.1) mmol/L Chloride 102 (98-107) mmol/L Carbon Dioxide 25 (22-30) mmol/L Anion Gap 12.0 (5-15) MEQ/L BUN 10 (9-20) mg/dL Creatinine 0.83 (0.66-1.25) mg/dL Estimated GFR 95.3 ML/MIN Glucose 106 (74-106) mg/dL Calcium 9.0 (8.4-10.2) mg/dL Urine Color Yellow (Yellow) Urine Appearance Clear (Clear) Urine pH 6.0 (4.6-8.0) Ur Specific [place] 1.015 (1.005-1.030) Urine Protein Negative (Negative) Urine Glucose (UA) Negative (Negative) mg/dL Urine Ketones Negative (Negative) Urine Blood Trace (Negative) Urine Nitrite Negative (Negative) Urine Bilirubin Negative (Negative) Urine Urobilinogen 1.0 A (0.2) mg/dL Ur Leukocyte Esterase Negative (Negative) U Hyaline Cast (Auto) NONE SEEN (0-2) /LPF Urine Microscopic RBC 3-5 (0-5) /HPF Urine Microscopic WBC 0-2 (0-5) /HPF Ur Epithelial Cells None Seen (None Seen) /HPF Urine Bacteria None Seen (None Seen) /HPF Urine Culture Reflexed NO (NO) Micro Results-Entire Visit: Microbiology 10/12/25 12:20 Urine Culture - Preliminary Catherized NO GROWTH TO DATE - Radiology Exams Ordered Rad Exams-Entire Visit: Radiology Procedures Category Date Time Status LUMBAR SPINE WITH [CT] Stat Exams 10/12/25 12:43 Taken THORACIC SPINE W CONTRAST [CT] Stat Exams 10/12/25 12:43 Taken - Procedures and Test Procedures and Tests throughout Hospitalization: Therapy Orders & Screens 10/10/25 20:07 PT Eval & Treat ( Order) ONCE Reason for Eval:: BLLE weakness, wants rehab placement Diagnosis: POST OP ORIF OT Eval and Treat ( Order) ONCE Comment: Physician Instructions: Reason For Exam: Evaluate: Yes Treat: Yes Reason for Evaluation: BLLE weakness, wants rehab placement Diagnosis: POST OP ORIF Discharge Exam General Appearance: no apparent distress, alert Neurologic Exam: alert, oriented x 3, cooperative, normal mood/affect, nml cerebellar function, sensation nml, motor weakness (BLLE), No motor deficits Eye Exam: PERRL, EOMI, eyes nml inspection Ears, Nose, Throat Exam: normal ENT inspection, pharynx normal, moist mucous membranes Neck Exam: normal inspection, non-tender, supple, full range of motion Respiratory Exam: normal breath sounds, lungs clear, No respiratory distress Cardiovascular Exam: regular rate/rhythm, normal heart sounds Gastrointestinal/Abdomen Exam: soft, No tenderness, No mass Male Genitalia Exam: deferred Rectal Exam: deferred Back Exam: normal inspection, normal range of motion, decreased range of motion (lumbar), No CVA tenderness, No vertebral tenderness Extremity Exam: normal inspection, normal range of motion Skin Exam: normal color, warm, dry Wound Assessment: Skin/Wound Assessment Wound/Incision Assessment Start: 10/11/25 04:10 Text: Status: Active Freq: Q4H Protocol: Document 10/13/25 04:00 KD (Rec: 10/13/25 05:11 KD [id number]) Wound/Incision Assessment Left ankle Wound Assessment Shift Assessment Wound Type Incision Wound Stage Non Pressure Wound Dressing Status Dry & Intact Drainage Amount None Drainage Odor None/Absent Comment CELESTINA, surgical dressing in place, CDI with no shadowing noted. LLE elevated Wound Photo Photo Taken No Final Diagnosis/Problem List - Final Discharge Diagnosis/Problem (1) Fracture of distal end of fibula Current Visit: No Status: Acute Code(s): S82.839A - OTH FRACTURE OF UPPER AND LOWER END OF UNSP FIBULA, INIT (2) Fall Current Visit: No Status: Acute Code(s): W19.XXXA - UNSPECIFIED FALL, INITIAL ENCOUNTER (3) Chronic back pain Current Visit: Yes Status: Acute Code(s): M54.9 - DORSALGIA, UNSPECIFIED; G89.29 - OTHER CHRONIC PAIN (4) Right leg weakness Current Visit: Yes Status: Acute Code(s): R29.898 - OTH SYMPTOMS AND SIGNS INVOLVING THE MUSCULOSKELETAL SYSTEM (5) HTN (hypertension) Current Visit: Yes Status: Chronic Code(s): I10 - ESSENTIAL (PRIMARY) HYPERTENSION (6) Obesity (BMI 30.0-34.9) Current Visit: Yes Status: Chronic Code(s): E66.811 - OBESITY, CLASS 1 (7) Acute urinary retention Current Visit: Yes Status: Acute Assessment & Plan: (1) Fracture of distal end of fibula Current Visit: No Status: Acute Assessment & Plan: - POD #1 repair by podiatry - Right ankle XR: - Intraoperative fluoroscopy provided for 2 minute 24 seconds. 18 digital spot images submitted for interpretation ultimately demonstrates lateral fixation plate/transverse screws fixating lateral malleolus fracture in good apposition/alignment. Distal tibia/fibula also demonstrates transverse tunnel radiolucency with medial orthopedic button. Correlate with intraoperative findings/report. - Podiatry following - Narcotic pain control - Tylenol for pain PRN - RICE techniques - CBC, CMP reviewed - IVF stopped - Cefazolin gave in OR - Narcan PRN resp depression - Non- weight bearing right ankle 10/11 - Podiatry note pending - Start Levaquin 500mg PO daily per Dr. Morel - + Weakness of BLLE - Pt not not do well with PT/OT today per verbal reports - CM working on placement to rehab - CBC, CMP reviewed - WBC 13.1 10/12 - WBC ok - CBC, CMP reviewed - Rehab in AM 10/13 - CBC, CMP reviewed - Continued weakness of BLLE - Pain well controlled - Colace for constipation 2:2 narcotic pain medication - Continue OP antibiotics per podiatry recs - Podiatry note reviewed and agree with plan of care. Discussed with podiatry and he is ok with you not taking aspirin since you are having back surgery on the . Code(s): S82.839A - OTH FRACTURE OF UPPER AND LOWER END OF UNSP FIBULA, INIT (2) Fall Current Visit: No Status: Acute Assessment & Plan: - See plan above - CBC, CMP reviewed - From Chronic RLE weakness - PT/OT eval with rehab placement Code(s): W19.XXXA - UNSPECIFIED FALL, INITIAL ENCOUNTER (3) Chronic back pain Current Visit: Yes Status: Acute Assessment & Plan: - Continue gabapentin - HX spinal stenosis - Has upcoming surgery with Dr. Lindo- Neurosurgery on October 18 - Would like to go to [facility] for rehab post op as his neurosurgeon has privileges there. - Chronic weakness of RLE Code(s): M54.9 - DORSALGIA, UNSPECIFIED; G89.29 - OTHER CHRONIC PAIN (4) Right leg weakness Current Visit: Yes Status: Acute Assessment & Plan: - Chronic - See Chronic back pain plan above Code(s): R29.898 - OTH SYMPTOMS AND SIGNS INVOLVING THE MUSCULOSKELETAL SYSTEM (5) HTN (hypertension) Current Visit: Yes Status: Chronic Assessment & Plan: - BP stable - Continue home BP med Code(s): I10 - ESSENTIAL (PRIMARY) HYPERTENSION (6) Obesity (BMI 30.0-34.9) Current Visit: Yes Status: Chronic Assessment & Plan: - Advised diet and exercise control Code(s): E66.811 - OBESITY, CLASS 1 (7) Acute urinary retention Current Visit: Yes Status: Acute Assessment & Plan: - > 700ml post void bladder scan - An placed for urinary retention. - CT thoracic and lumbar spine- stat - Unable to have MRI d/t screws in ankle 10/13 - CT lumbar and thoracic spine negative for acute concern. - An d/c and post void to be checked. - If needed will replace an - Likely enlarged prostate as nurse had resistance with an placement yesterday. F/U OP with PCP for further evaluation. D/C plan of care time > 50 minutes Code(s): R33.8 - OTHER RETENTION OF URINE - Discharge Discharge Date: 10/13/25 (Rehab at [facility]) Disposition: XFER OTHER Condition: Stable Prescriptions: New Docusate Sodium 100 mg [Docusate Sodium 100 MG] 100 mg PO DAILY 30 Days #30 cap Levofloxacin [Levofloxacin 500 MG Tablet] 500 mg PO DAILY 10 Days #10 tablet Continue Losartan Potassium 50 mg PO DAILY Sildenafil Citrate 1 tab PO DAILY Gabapentin [Neurontin ] 300 mg PO BID Ascorbic Acid/Ascorbate Sodium [Vitamin C 500 mg Tablet Chew] 500 mg PO DAILY Additional Instructions: [facility] Orders -Fall Precautions -Non-weightbearing on left operative ankle -Drsg to remain clean, dry, intact. Do not alter, may reinforce only. -PT/OT Eval & Treat -Regular Diet -Routine An Catheter Care -See attached med list for current med orders Discussed with podiatry and he is ok with you not taking aspirin since you are having back surgery on the . Follow up with: PORSCHE KHALIL DPM [PODIATRY STAFF, PODIATRY] - 10/16/25 9:00 am MEGA FOSTER MD [Primary Care Provider, [facility]]
--- NOTE | 2025-10-13 09:21 | XRAY ---
Indication: Urinary retention after fall. Multiple contiguous axial images obtained through thoracic spine using 80 cc Isovue 370 contrast. Sagittal and coronal reformatted images obtained. Comparison: None Osseous structures demineralized consistent with patient's age. Minimal elongated dextroscoliosis centered at T7. Moderate multilevel bridging/nonbridging endplate osteophytes. Tiny/small T5-T11 Schmorl nodes, largest inferior T8. No acute compression fracture or subluxation. Incidental C6-C7 anterior fusion hardware. Visualized contrasted soft tissues demonstrates minimal bilateral dependent atelectasis and a few tiny left lung calcified granulomas. CT lumbar spine reported separately. Impression: 1. Chronic findings including osteopenia, multilevel degenerative spondylosis, dextroscoliosis, incidental Schmorl nodes, and old granulomatous disease. 2. Remaining CT thoracic spine with contrast is negative.
--- NOTE | 2025-10-13 09:23 | XRAY ---
Indication: Urinary retention after fall. Multiple contiguous axial images obtained through lumbar spine using 80 cc Isovue 370 contrast. Sagittal and coronal reformatted images obtained. Comparison: None Osseous structures demineralized consistent with patient's age. Mild levoscoliosis centered at L3. Moderate multilevel bridging/nonbridging endplate osteophytes, L1-L2 degenerative vacuum disc phenomena, and L5-S1 disc space narrowing. No acute compression fracture or subluxation. Visualized contrasted soft tissues demonstrates mild scattered aortoiliac calcifications without AAA. CT thoracic spine reported separately. Impression: 1. Chronic findings including osteopenia, multilevel degenerative spondylosis, levoscoliosis, and arteriosclerotic disease. 2. Remaining CT lumbar spine with contrast is negative.
[2025-10-13] MEDS: Docusate Sodium 100 MG PO SCH (09:33)
--- NOTE | 2025-10-13 10:31 | OP ---
SURGERY DATE/TIME: 10/10/2025 [id number] PREOPERATIVE DIAGNOSES: 1) Left ankle bimalleolar fracture equivalent. 2) Left ankle pain. 3) Acute syndesmosis disruption. 4) Spinal compression injury, lumbar spine. POSTOPERATIVE DIAGNOSES: 1) Left ankle bimalleolar fracture equivalent. 2) Left ankle pain. 3) Acute syndesmosis disruption. 4) Spinal compression injury, lumbar spine. PROCEDURES: 1) Open reduction and internal fixation of left ankle bimalleolar fracture equivalent. 2) Acute syndesmotic reduction. SURGEON: Adriel Plasencia DPM [employer]NER CONSULTANT: ARTHUR Massey ANESTHESIA: General plus a preoperative popliteal and saphenous block. See Anesthesia report for details. HEMOSTASIS: Thigh tourniquet set to 320 mmHg for a total of 45 total tourniquet minutes. ESTIMATED BLOOD LOSS: Approximately 5 mL. MATERIALS: Devyn stainless steel 4-hole anatomic plate with a ZipTight and a combination of locking and nonlocking screws, 4-0 Monocryl, and 3-0 nylon. INDICATIONS: The patient is a very pleasant 70-year-old male who presented to my nurse practitioner's service approximately 1 week ago. The patient's history was complicated secondary to a spinal compression injury for which the patient is already planned to go forward with surgical intervention. Unfortunately for him, he did have insurance reject his approval of surgical intervention for the spinal compression in August, and he had to wait and go forward with physical therapy. However, during this time, whenever the patient internally rotates his leg to the right, he loses muscle control to the right lower extremity, which is the reason that he proceeded to have the fracture to the left ankle. The patient at this time had an MRI that demonstrated a syndesmotic disruption as well as the fibular fracture at the distal aspect very close to the joint line. From that standpoint, discussion was held regarding the options. Given that this is an unstable fracture with medial clear space widening and the syndesmosis disruption, we deemed that this is a surgical issue. We have discussed the case with the patient's neurosurgeon, who wishes to proceed with surgical intervention to the left ankle prior to his spinal decompression and intervention. From that standpoint, the patient has been made aware of all risks, complications, and benefits of surgical intervention at this time including, but not limited to, infection, hematoma, seroma, possibility of delayed wound healing, non-wound healing, possibility of delayed bone healing and non-bone healing, possibility of failure of surgical intervention, possibility of painful irritating hardware, and possible need for further surgical intervention at a later date. No guarantees were provided as to the outcome of surgical intervention. Plenty of time was allowed for the patient to ask questions, which were answered to his apparent satisfaction. It was at this time we decided to proceed. DESCRIPTION OF PROCEDURE AND FINDINGS: The patient was brought into the PACU prior to the procedure and provided a popliteal and saphenous block. See Anesthesia report for details. Following this, the patient was brought into the operating room, placed on the operating room table in a supine position. General anesthesia was administered until the patient was adequately sedated. Once the patient was sedated, a well-padded thigh tourniquet was applied to the left lower extremity and the tourniquet was set to 320 mmHg. The left lower extremity was prepped and draped in the typical sterile fashion, lowered onto the surgical field. At this time, an Esmarch was utilized to exsanguinate the leg and the tourniquet was inflated. A linear incision was made over the distal tip of the fibula where, at its most distal extent, the fracture was identified. Holding the fracture utilizing a pointed reduction forceps, a 4-hole anatomic plate was then introduced and distal cortical and locking screws were placed, checking on lateral and mortise views to ensure that there was good anatomic alignment. From that standpoint, once the distal screws were placed and the plate was placed in an adequate position in the proximal fibula, this was compressed to the bone utilizing a cortical screw and then a locking screw. Following this, a pointed reduction forceps was utilized to compress the syndesmosis at this level. The compression was held utilizing these forceps as we drilled for a 3.2 mm drill for the ZipTight. With a moderate amount of compression through the syndesmosis and the foot held in a dorsiflexed position, the ZipTight was advanced and compressed. Following this, position was assessed under fluoroscopic guidance for mortise views, lateral views, and AP views deeming near anatomic realignment of the ankle joint. From that standpoint, the wounds were cleansed with sterile saline. 4-0 Monocryl was utilized in a simple interrupted buried-type fashion to coapt the subcutaneous skin edges, and then the skin was coapted utilizing a 3-0 nylon in a horizontal mattress-type fashion. Following this, a dressing consisting of Betadine, Adaptic, 4 x 4, Kerlix, ABD, and a well-padded posterior splint was applied to the patient's left lower extremity with the foot orthogonal relative to longitudinal axis of the leg. The patient was then reversed from anesthesia and returned to the postoperative anesthesia care unit with vital signs stable and vascular status intact. The patient handled the anesthesia as well as the procedure without significant complication. Postoperative orders as indicated in the patient's discharge chart.
== END 2025-10-13 09:58 | DRG 494 ==
LOC: MED SURG 09:37 → SDC 09:37 → MED SURG 09:37 → EDSTATUS 10:05
PROVIDERS: ADMIT Internal Medicine; ATTEND Internal Medicine
PROC: 0QSK04Z Reposition Left Fibula with Internal Fixation Device, Open Approach (ICD-10-PCS; principal; 2025-10-10)
PROC: 0SSG0ZZ Reposition Left Ankle Joint, Open Approach (ICD-10-PCS; 2025-10-10)
DX: S82.65XA Nondisplaced fracture of lateral malleolus of left fibula, initial encounter for closed fracture (principal); W19.XXXA Unspecified fall, initial encounter; M54.9 Dorsalgia, unspecified; R29.898 Other symptoms and signs involving the musculoskeletal system; I10 Essential (primary) hypertension; E66.811 Obesity, class 1; G89.29 Other chronic pain; R33.8 Other retention of urine; M25.572 Pain in left ankle and joints of left foot; S93.432A Sprain of tibiofibular ligament of left ankle, initial encounter; R26.2 Difficulty in walking, not elsewhere classified; R53.1 Weakness; S93.422A Sprain of deltoid ligament of left ankle, initial encounter; M25.732 Osteophyte, left wrist; Z79.899 Other long term (current) drug therapy
CPT/HCPCS: 36415; 72129; 72131; 73610; 76000; 80048; 80053; 81001; 85027; 87086; 97110; 97163; 97165; 97530; C1713; Q3014